=== PATIENT | female | born 1985 | race Two or more races ===

== ENCOUNTER 2023-02-25 11:48 | Outpatient (REF) | payer OTHER, SELFPAY ==
[2023-02-25 14:00] LABS: MANUAL DIFF FLAG NO
[2023-02-25 14:08] LABS: Basophils Percent Auto 0.4 % (0-2); Eosinophils Absolute Auto 0.1 X10*3/uL (0.0-0.4); Eosinophils Percent Auto 1.2 % (0-4); Hematocrit 40.5 % (37.0-47.0); Hemoglobin 13.3 g/dl (12.0-16.0); Imm Gran Abs Auto 0.02 X10*3/uL (0.00-0.03); Imm Gran Pct Auto 0.3 % (0.0-0.4); Lymphocytes Absolute Auto 1.6 X10*3/uL (1.2-4.9); Lymphocytes Percent Auto 23.8 % (20-40); Mean Corpuscular HGB Conc 32.8 g/dl (31.0-35.0); Mean Corpuscular Volume 88.4 fL (80.0-98.0); Mean Platelet Volume 11.6 fL (9.4-12.3); Monocytes Absolute Auto 0.4 X10*3/uL (0.1-1.2); Monocytes Percent Auto 5.5 % (2-11); Neutrophils Absolute Auto 4.6 x10*3/uL (2.0-8.3); Neutrophils Percent Auto 68.8 % (45-73); Platelet Count 272 X10*3/uL (160-400); Red Blood Count 4.58 X10*6/uL (4.20-5.50); Red Cell Distribution Width 13.3 % (11.0-16.0); White Blood Count 6.7 X10*3/uL (4.8-10.8)
[2023-02-25 15:02] LABS: Alanine Aminotransferase 18 U/L (0-31); Albumin Level 4.4 g/dL (3.5-5.0); Alkaline Phosphatase 53 U/L (39-117); Anion Gap 12 (12-20); Aspartate Amino Transferase 15 U/L (5-31); Bilirubin Total 0.6 mg/dL (0.0-1.0); Blood Urea Nitrogen 12 mg/dL (9-16); Calcium 9.2 mg/dL (8.4-10.2); Carbon Dioxide 26 mmol/L (22-29); Chloride 106 mmol/L (96-108); Cholesterol 176 mg/dL (<200); Estimated Glomerular Filt Rate > 60; Glucose Fasting 74 mg/dL (60-99); HDL Cholesterol 53 mg/dL (>40); LDL Cholesterol Calculated 111 mg/dL (<100); Potassium 3.9 mmol/L (3.3-5.1); Sodium 140 mmol/L (135-145); Total Protein 7.6 g/dL (6.5-8.0); Triglycerides 61 mg/dL (<150)
[2023-02-25 15:11] LABS: TSH reflex Free T4 0.81 uIU/mL (0.32-4.0)
== END 2023-02-25 11:49 | disposition home or self-care (01) ==
LOC: HO.CHCLDS 11:48
PROVIDERS: Visit Provider Internal Medicine
DX: E78.00 Pure hypercholesterolemia, unspecified (principal)
CPT/HCPCS: 36415; 80053; 80061; 84443; 85025

== ENCOUNTER 2023-03-29 08:54 | Outpatient (REF) | payer OTHER, SELFPAY ==
--- NOTE | ~2023-03-29 | MM_ITS ---
EXAMINATION: MM SCREENING DIGITAL BREAST TOMOSYNTHESIS, BILATERAL CLINICAL INFORMATION: Screening. Asymptomatic. COMPARISON: Mammography: This is a baseline mammogram TECHNIQUE: Digital breast tomosynthesis is performed in both the craniocaudal and mediolateral oblique views along with computer-aided detection (CAD). Synthesized 2D images are generated from the tomosynthesis. FINDINGS: The breasts are heterogeneously dense, which may obscure small masses (ACR BI-RADS breast composition Category c). There are no significant masses, abnormal calcifications, or other abnormalities. MM/MM tomosynthesis screening BI IMPRESSION: No mammographic evidence of malignancy. ASSESSMENT: BI-RADS BI-RADS 1 - Negative RECOMMENDATION: Routine annual mammography screening. 1 year F/U This examination should not preclude the clinical evaluation of a suspicious palpable abnormality. This patient's information was entered into a reminder system with a target due date for their next mammogram.
== END 2023-03-29 08:55 | disposition home or self-care (01) ==
LOC: HO.MAMMO 08:54
PROVIDERS: PCP Internal Medicine; Visit Provider Internal Medicine
DX: Z12.31 Encounter for screening mammogram for malignant neoplasm of breast (principal)
CPT/HCPCS: 77063; 77067

== ENCOUNTER → 2023-03-29 09:00 | Outpatient (BNV) | payer SELFPAY | PROVIDERS: PCP Internal Medicine; Visit Provider Radiology Diagnostic Radiology | DX: Z12.31 Encounter for screening mammogram for malignant neoplasm of breast (principal) | CPT/HCPCS: 77063; 77067 ==

== ENCOUNTER 2024-04-26 10:36 | Outpatient (REF) | payer OTHER, SELFPAY ==
--- OUTSIDE RECORDS SUMMARY | 2024-04-26 11:58 | XMS_ITS | Clinical Summary ---
Author Organization [employer] Address [address] [facility] 7[address] [place] [address] Care Team Providers Care Solution Architect Name Role Phone Shiv Hirsch MD Primary Care Prov ider Allergies No known active allergies Medications No known medications Active Problems Problem Noted Date Diagnosed Date Physical exam 02/25/2023 Assessment & Plan (02/25/2023 1:13 PM EST): Unremarkable, no thyroid nodules, heart rate/rhythm, no murmurs, was clear to auscultation, will order routine blood work for further evaluation Encounter for screening mamm ogram for malignant neoplasm of breast 02/25/2023 Assessment & Plan (02/25/2023 1:13 PM EST): Will order a mammogram Screening for cervical cancer 02/25/2023 Assessment & Plan (02/25/2023 1:14 PM EST): Due for a pap smear, will pace referal Elevated cholesterol 05/28/2022 Assessment & Plan (02/25/2023 1:10 PM EST): Will place lab order for guidance, she has been following diet reccomendations Assessment & Plan (05/28/2022 9:55 AM EDT): Discussed blood work results, encouraged to exercise, decrease fried/fast food, decrease red meats, increase vegetable/fruits and fish. Will follow in 6 months Protuberant abdomen 02/20/2022 Assessment & Plan (02/20/2022 9:15 AM EST): Patient refer that when she does the movement to sit or get up, she feel a abdominal bulging, she had MRI/Ct scan done in 2020, did not showed evidence of hernia, will schedule a office visit, ddx diastasis/hernia Immunizations Name Administration Dates Next Due Tdap 03/04/2019 Family History Medical History Relation Name Comments Hypertension Father Lung cancer Maternal Grandmother Asthma Mother Peripheral vascular disease Mother Diabetes Paternal Grandmother Relation Name Status Comments Father Maternal Grandmother Mother Paternal Grandmother Social History Tobacco Use Types Packs/Day Years Used Date Smoking Tobacco: Never Smokeless Tobacco: Never Tobacco Cessation:Counseling Given: Not Answered Alcohol Use Standard Drinks/Week Comments Never 0 (1 standard drink = 0.6 oz pur e alcohol) Housing Stability Answer Date Recorded What is your housing situation today? I have tomás willis 02/18/[address] you li ve. Do you have problems with any of the following? None of the above 02/18/2023 Food Insecurity Answer Date Recorded Within the past 12 months, y ou worried that your food would run out before you got money to buy more: Never True 02/18/2023 Within the past 12 months,th e food you bought just didn't last and you didn't have enough money to get more: Never True 03/2023 Transportation Answer Date Recorded In the past 12 months, has l ack of transportation kept you from medical appts, meetings, work or from getting things needed for daily living? No 02/18/2023 Utilities Answer Date Recorded In the past 12 months, has t he [employer], gas, oil or water [employer] threatened to shut off services in your home? No 02/18/2023 Depression Answer Date Recorded Patient Health Questionnaire-2 Score 0 02/25/2023 Comments Unknown Sex and Gender Information Value Date Recorded Sex Assigned at Female 12/17/2021 10:18 AM EDT Legal Sex Female 10:18 AM EDT Gender Identity Female 12/17/2021 10:18 AM EDT Sexual Orientation Straight 12/17/2021 10 :18 AM EDT Last Filed Vital Signs Vital Sign Reading Time Taken Comments Blood Pressure 134/85 02/25/2023 11:05 AM EST Pulse 77 02/25/2023 11:05 AM EST Temperature 37.1 ??C (98.7 ??F) 02/25/2023 11:[address] Respiratory Rate 20 02/25/2023 11:05 AM EST Oxygen Saturation - - Inhaled Oxygen Concentration - - Weight 66.2 kg (146 lb) 02/25/2023 11:05 AM EST Height 165.1 cm (5' 5 ) 02/25/2023 11:05 AM EST Body Mass Index 24.3 02/25/2023 11:05 AM EST Plan of Treatment Upcoming Encounters Date Type Department Care Team (Late st Contact Info) Description 07/08/2024 9:00 AM EDT Office Visit [facility] [address], [place] [phone] Shiv Hirsch MD [address], [place] [phone] Health Maintenance Due Date Last Done Comments Alcohol/Substance Use Screening 1996 Family Planning (PISQ) 01/18/1999 Hepatitis B Vaccines (1 of 3 - 19+ 3-dose series) 01/18/2003 Pap Smear 01/18/2005 Tobacco Screening 02/20/2023 02/20/2022 COVID-19 Vaccine ( - 2023-2 5 season) 2023 Influenza Vaccine (#1) 2023 Cervical Cancer Screening 11/11/2023 HPV/Cotest 11/11/2023 11/10/2018 SDOH Screening 02/19/2024 02/18/2023 Depression Screening 02/26/2024 02/25/2023, 02/25/2023 Mammogram 03/29/2025 03/29/2023 DTaP/Tdap/Td Vaccines (2 - T d or Tdap) 03/04/2029 03/04/2019 Zoster Vaccines (1 of 2) 01/18/2034 RSV Patients and Patients Aged 60 years or older (1 - 1-dose 75+ series) 01/18/2059 HIV Screening Completed 03/04/2019 Hepatitis C Screening Completed 03/04/2019 HIB Vaccines Aged Out No longer eligi ble based on patient's age to complete this topic HPV Vaccines Aged Out No longer eligi ble based on patient's age to complete this topic Hepatitis A Vaccines Aged Out No long er eligible based on patient's age to complete this topic IPV Vaccines Aged Out No longer eligi ble based on patient's age to complete this topic Meningococcal Vaccine Aged Out No thao orly eligible based on patient's age to complete this topic Pneumococcal Vaccine: Pediatrics (0 to 5 Years) and At-Risk Patients (6 to 49) Years) Aged Out No longer eligible b ased on patient's age to complete this topic RSV under 20 months Aged Out No longe r eligible based on patient's age to complete this topic Rotavirus Vaccines Aged Out No longer eligible based on patient's age to complete this topic Procedures Procedure Name Priority Date/Time Associated Diagnosis Comments BI MAMMOGRAM SCREENING TOMOSYNTHESIS BILATERAL Routine 03/29/2023 9:12 AM EST LINDA HISTORICAL HEPATITIS C ANTIBODY RFLX Routine 03/04/2019 10:45 AM EST LINDA HISTORICAL HIV AB/AG Routine 03/04/2019 10:45 AM EST LINDA HISTORICAL HPV MRNA E6/E7 Routine 11/10/2018 11:09 AM EDT from Last 3 Months or Most Recently Relevant to Health Maintenance Results * BI Mammogram Screening Tomosynthesis Bilateral (03/29/2023 9:12 AM EST) Anatomical Region Laterality Modality Breast Bilateral Mammography 03/29/2023 9:12 AM EST Narrative 04/12/2023 1:24 PM EST ? [facility] ? [address] ?[place] [address] ? Mammography Report ? Signed ? Patient: Joe Maciel,Vandana ?MR#: [id number] ?? [id number] ? : 1985 ?Acct:[id number] ? Age/Sex: 38 / F ?ADM Date: 02/10/24 ? Loc: HO.MAMMO ? Attending Dr: Shiv May MD ? Ordering Physician: Shiv Hirsch MD ?Res ?? ults: 1Negative ? Date of Service: 03/29/23 ?Follow Up: 1 Year From Orig ?? inal Mammogram ? Procedure(s): MM tomosynthesis screening BI ?? Accession Number(s): [id number] ? cc: Shiv Hirsch MD ? EXAMINATION: ?? MM SCREENING DIGITAL BREAST TOMOSYNTHESIS, BILATERAL ? CLINICAL INFORMATION: ? Screening. Asymptomatic. ? COMPARISON: ?? Mammography: This is a baseline mammogram ? TECHNIQUE: ?? Digital breast tomosynthesis is performed in both the craniocaudal and ?? mediolateral oblique views along with computer-aided detection (CAD). ?? Synthesized 2D images are generated from the tomosynthesis. ? FINDINGS: ?? The breasts are heterogeneously dense, which may obscure small masses ?? (ACR BI-RADS breast composition Category c). ? There are no significant masses, abnormal calcifications, or other ?? abnormalities. ? MM/MM tomosynthesis screening BI ?? IMPRESSION: ?? No mammographic evidence of malignancy. ? ASSESSMENT: ? BI-RADS BI-RADS 1 - Negative ? RECOMMENDATION: ?? Routine annual mammography screening. ? 1 year F/U ? This examination should not preclude the clinical evaluation of a ?? suspicious palpable abnormality. ? This patient's information was entered into a reminder system with a ?? target due date for their next mammogram. ? Dictated By: ?Delaney Alba MD ? Signed By: ?<Electronically signed by Delaney Alba MD in OV> ? 04/12/23 1320 ? DD/ 0912 ? TD/TT: ? Bag Worker: ? Procedure Note Elyssa, Image - [facility]/12/[facility] [address] [place] [address] Mammography Report Signed Patient: Vandana McfaddenMR#: M [id number] : 1985Acct:[id number] Age/Sex: 38 / FADM Date: 03/29/23 Loc: HO.MAMMO Attending Dr: Shiv May MD Ordering Physician: Shiv Hirsch ults: 1Negative Date of Service: 03/29/23Follow Up: 1 Year From Orig inal Mammogram Procedure(s): MM tomosynthesis screening BI Accession Number(s): [id number] cc: Shiv Hirsch MD EXAMINATION: MM SCREENING DIGITAL BREAST TOMOSYNTHESIS, BILATERAL CLINICAL INFORMATION: Screening. Asymptomatic. COMPARISON: Mammography: This is a baseline mammogram TECHNIQUE: Digital breast tomosynthesis is performed in both the craniocaudal and mediolateral oblique views along with computer-aided detection (CAD). Synthesized 2D images are generated from the tomosynthesis. FINDINGS: The breasts are heterogeneously dense, which may obscure small masses (ACR BI-RADS breast composition Category c). There are no significant masses, abnormal calcifications, or other abnormalities. MM/MM tomosynthesis screening BI IMPRESSION: No mammographic evidence of malignancy. ASSESSMENT: BI-RADS BI-RADS 1 - Negative RECOMMENDATION: Routine annual mammography screening. 1 year F/U This examination should not preclude the clinical evaluation of a suspicious palpable abnormality. This patient's information was entered into a reminder system with a target due date for their next mammogram. Dictated By: Delaney Alba MD Signed By: <Electronically signed by Delaney Alba MD in OV> 04/12/23 1320 DD/ 0912 TD/TT: Bag Worker: Shiv May MD IMG BI PROCEDURES Edited Result - Final * HEPATITIS C ANTIBODY RFLX (03/04/2019 10:45 AM EST) [facility] HEPATITIS C ANTIBODY NONREACTIVE NONREACTIVE [facility] Comment: Antibodies to HCV not detected; does not exclude early acute HCV infection. 03/04/2019 10:4 5 AM EST Historical Provider HISTORICAL/NON ORDERABLE LABS Final Result Performing Organization Address [facility] Co de Phone Number [facility] [address] * HIV AB/AG (03/04/2019 10:45 AM EST) [facility] HIV AG/AB NONREACTIVE [facility] Comment: HIV-1 p24 Ag and/or HIV-1/HIV-2 Ab not detected. ?? A test result that is nonreactive does not exclude the possibility of exposure to or infection with HIV-1 and/or HIV-2. Nonreactive results in this assay for individuals with prior exposure to HIV-1 and/or HIV-2 may be due to antigen and antibody levels that are below the limit of detection of this assay. ?? The [employer] Tacking Stitch Remover HIV Ag/Ab Combo assay result and supplemental assay results should be interpreted in conjunction with the patient's clinical presentation, history and other laboratory results. ??If the results are inconsistent with clinical evidence, additional testing is suggested to confirm the result. 03/04/2019 10:4 5 AM EST Historical Provider HISTORICAL/NON ORDERABLE LABS Final Result Performing Organization Address [facility] Co de Phone Number [facility] [address] * HPV mRNA E6/E7 (11/10/2018 11:09 AM EDT) [facility] HPV mRNA E6/E7 Not Detected NOT DETECTED [facility] Comment: This test was performed using the APTIMA(R) HPV Assay ([employer] This assay detects E6/E7 viral messenger RNA (mRNA) from 14 high-risk HPV types (16,18,31,33,35,39,45,51, 52,56,58,59,66,68). For additional information please refer to: http://education.Airbnb/faq/HLM106y3 (This link is being provided for informational/ educational purposes only.) The analytical performance characteristics of this assay have been determined by [employer] [place], [place]. The modifications have not been cleared or approved by the FDA. This assay has been validated pursuant to the CLIA regulations and is used for clinical purposes. Test Performed by [facility], [employer], [address] [place] [address] Benson Choe M.D., Ph.D., Director of Laboratories , CLIA [id number] Please note: ??Effective 10/30/2015, HPV testing will be performed using [employer] [place]'s APTIMA test which targets mRNA. Detecting mRNA instead of DNA, as in older methods, offers significant improvements in specificity. 11/10/2018 11:0 9 AM EDT Ariana Junior CNM HISTORICAL/NON ORDERABLE LABS Final Result [facility] Formerly [facility] [address] from Last 3 Months or Most Recently Relevant to Health Maintenance Insurance [facility] Care Teams Solution Architect Relationship Specialty Start Date End Date Shiv Hirsch MD [address] [place] [address] LORRIE Dave13 PCP - General Internal Medicine 07/18/19
== END 2024-04-26 10:37 | disposition home or self-care (01) ==
LOC: HO.MAMMO 10:36
PROVIDERS: PCP Internal Medicine; Visit Provider Internal Medicine
DX: Z12.31 Encounter for screening mammogram for malignant neoplasm of breast (principal)
CPT/HCPCS: 77063; 77067

== ENCOUNTER → 2024-04-26 10:45 | Outpatient (BNV) | payer OTHER, SELFPAY | PROVIDERS: PCP Internal Medicine; Visit Provider Internal Medicine | DX: Z12.31 Encounter for screening mammogram for malignant neoplasm of breast (principal) | CPT/HCPCS: 77063; 77067 ==

== ENCOUNTER 2024-09-28 11:56 | Outpatient (REF) | payer OTHER, SELFPAY | END 2024-09-28 11:57 | disposition home or self-care (01) | LOC: HO.HHCLNP 11:56 | PROVIDERS: Visit Provider Internal Medicine | DX: R39.9 Unspecified symptoms and signs involving the genitourinary system (principal) | CPT/HCPCS: 87086 ==

== ENCOUNTER 2024-09-29 12:12 | Outpatient (REF) | payer OTHER, SELFPAY ==
--- NOTE | ~2024-09-29 | XR_ITS ---
EXAMINATION: XR ABDOMEN 2 VIEWS SUPINE ERECT HISTORY: kub and upright, right flank pain COMPARISON: There are no prior studies available for comparison. FINDINGS: Supine and upright views of the abdomen are submitted. The bowel gas pattern is unremarkable, without evidence of mechanical obstruction. There is no free intraperitoneal gas. There is a large amount of stool throughout the colon.. Tiny calcification in the right midabdomen appears to be related to bowel. There are no abnormal soft tissue masses. The bones are intact. XR/XR abdomen min 2V IMPRESSION: Large amount of stool throughout the colon. No suspicious calcifications are identified. Electronically signed by: Gustavo Serna MD 09/29/2024 12:39 PM EDT
== END 2024-09-29 12:13 | disposition home or self-care (01) ==
LOC: HO.XRAY 12:12
PROVIDERS: PCP Internal Medicine; Visit Provider Internal Medicine
DX: R10.9 Unspecified abdominal pain (principal)
CPT/HCPCS: 74019

== ENCOUNTER → 2024-09-29 12:17 | Outpatient (BNV) | payer OTHER, SELFPAY | PROVIDERS: PCP Internal Medicine; Visit Provider Radiology Diagnostic Radiology | DX: R10.9 Unspecified abdominal pain (principal) | CPT/HCPCS: 74019 ==

== ENCOUNTER 2024-11-16 18:29 | Outpatient (REF) | payer OTHER, SELFPAY ==
--- OUTSIDE RECORDS SUMMARY | 2024-11-16 14:00 | XMS_ITS | Encounter Summary ---
Author Organization [employer] Address [address] [facility] [address] [place] [address] Care Team Providers Care Computer Artist Name Role Phone Shiv Hirsch MD Primary Care Prov ider Reason for Referral * Imaging (Routine) - Pending Review Specialty Diagnoses / Procedures Referred By Contac t Referred To Contact Radiology Diagnoses Acute cystitis with hematuria History of kidney stones Procedures CT Abdomen Pelvis w/o Contrast Lupillo Macias MD [address] [place] [address] Phone: tel: fax: Referral ID Status Reason Start Date Expiration Date V isits Requested Visits Authorized [id number] Pending Review 11/16/2024 11/16/2025 1 1 Reason for Visit * Reason Comments UTI Encounter Details Date Type Department Care Team (Late st Contact Info) Description 11/16/2024 2:00 PM EDT Office Visit [facility] [address] [place] [phone] Lupillo Macias MD [address], [place] [phone] Acute cystitis with hematuria (Primary Dx); Urinary tract infection with hematuria, site unspecified; History of kidney stones Social History Tobacco Use Types Packs/Day Years Used Date Smoking Tobacco: Never Smokeless Tobacco: Never Alcohol Use Standard Drinks/Week Comments Never 0 (1 standard drink = 0.6 oz pur e alcohol) Housing Stability Answer Date Recorded What is your housing situation today? I have tomás willis 06/29/[address] you li ve. Do you have problems with any of the following? None of the above 06/29/2024 Food Insecurity Answer Date Recorded Within the past 12 months, y ou worried that your food would run out before you got money to buy more: Never True 06/29/2024 Within the past 12 months,th e food you bought just didn't last and you didn't have enough money to get more: Never True Transportation Answer Date Recorded In the past 12 months, has l ack of transportation kept you from medical appts, meetings, work or from getting things needed for daily living? No 06/29/2024 Utilities Answer Date Recorded In the past 12 months, has t he electric, gas, oil or water company threatened to shut off services in your home? No 06/29/2024 Depression Answer Date Recorded Patient Health Questionnaire-2 Score 0 02/25/2023 Internet Access Answer Date Recorded Internet Access Q1 Yes 06/29/2024 Internet Access Q2 Not on file 06/29/2024 Comments Unknown Sex and Gender Information Value Date Recorded Sex Assigned at Female 12/17/2021 10:18 AM EDT Legal Sex Female 10:18 AM EDT Gender Identity Female 12/17/2021 10:18 AM EDT Sexual Orientation Straight 12/17/2021 10 :18 AM EDT documented as of this encounter Last Filed Vital Signs Vital Sign Reading Time Taken Comments Blood Pressure 128/71 11/16/2024 1:52 PM EDT Pulse 76 11/16/2024 1:52 PM EDT Temperature 36.9 C (98.4 F) 11/16/2024 1:52 PM EDT Respiratory Rate 19 11/16/2024 1:52 PM EDT Oxygen Saturation 99% 11/16/2024 1:52 PM EDT Inhaled Oxygen Concentration - - Weight 68.8 kg (151 lb 9.6 oz) 11/16/2024 1:52 P M EDT Height 165.1 cm (5' 5 ) 11/16/2024 1:52 PM EDT Body Mass Index 25.23 11/16/2024 1:52 PM EDT documented in this encounter Progress Notes * Lupillo Mills Edmund, MD - 11/16/2024 2:00 PM EDT SUBJECTIVE Vandana Joe is a 39 y.o. female who presents for UTI. 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 HENT: Negative for sore throat. Respiratory: Negative for cough and shortness of breath. Cardiovascular: Negative for chest pain. Gastrointestinal: Negative for abdominal pain. Neurological: Negative for headaches. Allergies[1] OBJECTIVE Vitals: 11/16/24 1352 BP: 128/71 BP Location: Left arm Patient Position: Sitting BP Cuff Size: Adult Pulse: 76 Resp: 19 Temp: 98.4 ??F (36.9 ??C) TempSrc: Oral SpO2: 99% Weight: 151 lb 9.6 oz (68.8 kg) Height: 5' 5 (1.651 m) Physical Exam Vitals reviewed. Constitutional: Appearance: Normal appearance. HENT: Head: Normocephalic and atraumatic. Right Ear: External ear normal. Left Ear: External ear normal. Nose: Nose normal. Mouth/Throat: Mouth: Mucous membranes are moist. Eyes: Conjunctiva/sclera: Conjunctivae normal. Cardiovascular: Rate and Rhythm: Normal rate and regular rhythm. Pulmonary: Effort: Pulmonary effort is normal. Breath sounds: Normal breath sounds. Skin: General: Skin is warm. Neurological: Mental Status: She is alert. Mental status is at baseline. Assessment/Plan Problem List Items Addressed This Visit Acute cystitis with hematuria - Primary Pt with new onset of dysuria and hematuria Suggestive of early UTI, although given the hematuria Kidney stone needs to be ruled out Plan: Send Urine for Cx Bactrim DS BID x 3 days Increase fluid intake, cranberry juice Will saend for a CT abdominal/pelvis given her history of nephrolithiasis Relevant Medications sulfamethoxazole-trimethoprim (Bactrim DS) 800-160 MG tablet Other Relevant Orders CT Abdomen Pelvis w/o Contrast Other Visit Diagnoses Urinary tract infection with hematuria, site unspecified Relevant Orders POCT Urinalysis (Completed) Culture, Urine, Routine History of kidney stones Relevant Medications sulfamethoxazole-trimethoprim (Bactrim DS) 800-160 MG tablet Other Relevant Orders CT Abdomen Pelvis w/o Contrast This note was drafted using Ambient (AI) technology. The patient/patient's guardian has been informed and has consented to the use of this technology: Yes No future appointments. [1] No Known Allergies documented in this encounter Miscellaneous Notes * Assessment & Plan Note - Lupillo Shaffer MD - 11/16/2024 2:14 PM EDT Associated Problem(s): Acute cystitis with hematuria Pt with new onset of dysuria and hematuria Suggestive of early UTI, although given the hematuria Kidney stone needs to be ruled out Plan: Send Urine for Cx Bactrim DS BID x 3 days Increase fluid intake, cranberry juice Will saend for a CT abdominal/pelvis given her history of nephrolithiasis documented in this encounter Plan of Treatment Scheduled Orders Name Type Priority Associated Diagnoses Orde r Schedule Culture, Urine, Routine Microbiology Routine Urinary tract infection with hematuria, site unspecified Expected: 11/16/2024 (Approximate), Expires: 11/16/2025 CT Abdomen Pelvis w/o Contrast Imaging Routine Acute cystitis with hematuria History of kidney stones Ordered: 11/16/2024 documented as of this encounter Procedures Procedure Name Priority Date/Time Associated Diagnosis Comments POCT URINALYSIS DIPSTICK Routine 11/16/2024 2:00 PM EDT Urinary tract infection with hematuria, site unspecified documented in this encounter Results * (ABNORMAL) POCT Urinalysis (11/16/2024 2:00 PM EDT) Color, UA Yellow Clarity, UA Cloudy Glucose, UA Negative Bilirubin, UA Negative Ketones, UA Negative Spec Grav, UA 1.020 Blood, UA Positive(A) Negative, None Detected Comment:moderate pH, UA 7.0 Protein, UA Trace Comment:30 mg/dL Urobilinogen, UA 0.2 Leukocytes, UA Many(A) Negative, Rare, Trace Comment:small Nitrite, UA Negative Negative, None Detected Appearance, UA slightly cloudy QC Media Lot # [id number] Lot# Expiration Date [id number] Urine 11/16/2024 2:00 PM EDT Lupillo Shaffer MD POINT OF CARE TEST EN TER/EDIT ORDERABLES Final Result documented in this encounter Visit Diagnoses Diagnosis Acute cystitis with hematuria- Primary Urinary tract infection with hematuria, site unspecified History of kidney stones documented in this encounter Care Teams Computer Artist Relationship Specialty Start Date End Date Shiv Hirsch MD [address] [place] [id number] PCP - General Internal Medicine 07/18/19 documented as of this encounter
--- OUTSIDE RECORDS SUMMARY | 2024-11-16 18:32 | XMS_ITS | Encounter Summary ---
Author Organization [employer] Address [address] [facility] [address] [place] [address] Care Team Providers Care Airport Sales Agent Name Role Phone Shiv Hirsch MD Primary Care Prov ider Encounter Details Date Type Department Care Team (Late st Contact Info) Description 09/29/2024 Results Follow-Up [facility] [address] [place] [address] Jessie Crenshaw MD [address] [place] [address] XR Abdomen 2 View minimum Social History Tobacco Use Types Packs/Day Years Used Date Smoking Tobacco: Never Smokeless Tobacco: Never Alcohol Use Standard Drinks/Week Comments Never 0 (1 standard drink = 0.6 oz pur e alcohol) Housing Stability Answer Date Recorded What is your housing situation today? I have tomásany willis 06/29/[address] you [...] AM EDT documented as of this encounter Plan of Treatment Not on file documented as of this encounter Visit Diagnoses Not on filedocumented in this encounter Care Teams Airport Sales Agent Relationship Specialty Start Date End Date Shiv Hirsch MD [address] [place] [address] PCP - General Internal Medicine 07/18/19 documented as of this encounter
--- OUTSIDE RECORDS SUMMARY | 2024-11-16 18:32 | XMS_ITS | Clinical Summary ---
Author Organization [employer] [facility] [employer] Address [address] [facility] [address] [place] [address] Care Team Providers Care Circuit Clerk Name Role Phone Shiv Hirsch MD Primary Care Prov ider Allergies No known active allergies Medications sulfamethoxazole -trimethoprim (Bactrim DS) 800-160 MG tabletIndication s:Acute cystitis with hematuria Take 1 tablet by mouth 2 times daily for 3 days. 6 tablet 11/16/2024 5 Active Active Problems Problem Noted Date Diagnosed Date Acute cystitis with hematuria 11/16/2024 Assessment & Plan (11/16/2024 2:14 PM EDT): Pt with new onset of dysuria and hematuria Suggestive of early UTI, although given the hematuria Kidney stone needs to be ruled out Plan: Send Urine for Cx Bactrim DS BID x 3 days Increase fluid intake, cranberry juice Will saend for a CT abdominal/pelvis given her history of nephrolithiasis Right flank pain 09/28/2024 Assessment & Plan (09/28/2024 7:46 PM EDT): Drink plenty of water I will order KUB to r/o kidney stones UTI symptoms 09/28/2024 Assessment & Plan (09/28/2024 7:47 PM EDT): Drink plenty of water, do not hold the urine I will prescribe macrobid 00mg BID for 1 week UA done culture send, she will be contacted with results Physical exam 02/25/2023 Assessment & Plan (09/22/2024 2:40 PM EDT): Unremarkable physical examination, no heart murmurs, no thyroid nodules, clear to auscultation bilaterally, will order routine blood test Mammogram done Pending pap smear Assessment & Plan (02/25/2023 1:13 PM EST): [...] referal Elevated cholesterol 05/28/2022 Assessment & Plan (09/22/2024 2:39 PM EDT): New abs will be ordered for guidance of therapy Assessment & Plan (02/25/2023 1:10 PM EST): [...] will schedule a office visit, ddx diastasis/hernia Encounters Date Type Department Care Team Description 11/16/2024 2:00 PM EDT Office Visit [facility] [address] [place] [address] Lupillo Macias MD Acute cystitis with hematuria (Primary Dx); Urinary tract infection with hematuria, site unspecified; History of kidney stones 09/29/2024 Results Follow-Up [facility] [address] [place] [id number] Jessie Crenshaw MD XR Abdomen 2 View minimum 09/28/2024 6:40 PM EDT Office Visit [facility] [address] [place] [address] Jessie Crenshaw MD Frequent urination; Right flank pain; UTI symptoms 09/28/2024 Travel 09/22/2024 2:00 PM EDT Office Visit [facility] [address] [place] [address] Shiv Hirsch MD Physical exam (Primary Dx); Elevated cholesterol; Frequent urination 09/22/2024 Travel 09/14/2024 Patient Outreach [facility] [address] [place] [id number] Shiv Hirsch MD Pre-visit Planning (SDOH screening completed on 06/29/24) from Last 3 Months Immunizations Immunization Administration Dates Next Due Tdap 03/04/2019 Family [...] your housing situation today? I have tomás lazaro 06/29/[address] you li [...] Mass Index 25.23 11/16/2024 1:52 PM EDT Plan of Treatment Health Maintenance Due Date Last Done Comments Disability Screening 1984 Alcohol/Substance Use Screening 1996 Family Planning (PISQ) 01/18/1999 HPV Vaccines (1 - 3-dose series) 01/18/1999 Hepatitis B Vaccines (1 of 3 - 19+ 3-dose series) 01/18/2003 Pap Smear 01/18/2005 Cervical Cancer Screening 11/11/2023 HPV/Cotest 11/11/2023 11/10/2018 Depression Screening 02/26/2024 02/25/2023, 02/25/2023 COVID-19 Vaccine (1 - 2023-2 5 season) 2024 Influenza Vaccine (#1) 2024 SDOH Screening 06/29/2025 06/29/2024 Tobacco Screening 09/28/2025 09/28/2024 Mammogram 04/26/2026 04/26/2024, 03/29/2023 DTaP/Tdap/Td Vaccines (2 - T d [...] patient's age to complete this topic Meningococcal B Vaccine Aged Out No l onger eligible based on patient's age to complete this topic Meningococcal Vaccine Aged Out No thao orly eligible based on patient's age to complete this topic Pneumococcal Vaccine: Pediatrics (0 to 5 Years) and At-Risk Patients (6 to 49) Years Aged Out No longer eligible b ased [...] Urinary tract infection with hematuria, site unspecified XR ABDOMEN 2V+ Routine 09/29/2024 12:23 PM EDT CULTURE, URINE, ROUTINE Routine 09/28/2024 6:38 PM EDT UTI symptoms POCT URINALYSIS DIPSTICK Routine 09/28/2024 5:34 PM EDT Frequent urination POCT URINALYSIS DIPSTICK Routine 09/22/2024 2:44 PM EDT Frequent urination BI MAMMOGRAM SCREENING TOMOSYNTHESIS BILATERAL Routine 04/26/2024 10:40 AM EDT [facility] HISTORICAL HEPATITIS C ANTIBODY RFLX Routine 03/04/2019 10:45 AM EST [facility] HISTORICAL HIV AB/AG Routine 03/04/2019 10:45 AM EST [facility] HISTORICAL HPV MRNA E6/E7 Routine 11/10/2018 11:09 AM EDT from Last 3 Months or Most Recently Relevant to Health Maintenance Results * (ABNORMAL) POCT Urinalysis (11/16/2024 2:00 PM EDT) Only the most recent of3 resultswithin the time period is included. Color, UA Yellow Clarity, UA Cloudy Glucose, [...] Date 63,026 Urine 11/16/2024 2:00 PM EDT us Lupillo Shaffer MD POINT OF CARE TEST EN TER/EDIT ORDERABLES Final Result * XR Abdomen 2 View minimum (09/29/2024 12:23 PM EDT) Anatomical Region Laterality Modality Abdomen Radiographic Henny ging 09/29/2024 12:2 3 PM EDT Narrative 09/29/2024 12:41 PM EDT [address] [address] XRay Report Signed Patient: Vandana Mcfadden MR#: [id number] : 1985 Acct:[id number] Age/Sex: 39 / F ADM Date: 09/29/24 Loc: [facility] Attending Dr: Jessie Chen MD Ordering Physician: Jessie Crenshaw MD Date of Service: 09/29/24 Procedure(s): XR abdomen min 2V Accession Number(s): [id number] cc: Jessie Crenshaw MD; Shiv Hirsch MD EXAMINATION: XR ABDOMEN 2 VIEWS SUPINE ERECT HISTORY: kub and upright, right flank pain COMPARISON: There are no prior studies available for comparison. FINDINGS: Supine and upright views of the abdomen are submitted. The bowel gas pattern is unremarkable, without evidence of mechanical obstruction. There is no free intraperitoneal gas. There is a large amount of stool throughout the colon.. Tiny calcification in the right midabdomen appears to be related to bowel. There are no abnormal soft tissue masses. The bones are intact. XR/XR abdomen min 2V IMPRESSION: Large amount of stool throughout the colon. No suspicious calcifications are identified. Electronically signed by: Gustavo Serna MD 09/29/2024 12:39 PM EDT RP Dictated By: Gustavo Serna MD Signed By: <Electronically signed by Gustavo Serna MD in OV> 09/29/24 1239 DD/ 1223 TD/TT: 09/29/24 1231 Motor And Generator Assembler: Procedure Note Donotuseinterpreter, Image - 09/29/[address] [address] XRay Report Signed Patient: Vandana McfaddenMR#: [id number] : 1985Acct:[id number] Age/Sex: 39 / FADM Date: 09/29/24 Loc: [facility] Attending Dr: Jessie Cehn MD Ordering Physician: Jessie Crenshaw MD Date of Service: 09/29/24 Procedure(s): XR abdomen min 2V Accession Number(s): [id number] cc: Jessie Crenshaw MD; Shiv Hirsch MD EXAMINATION: XR ABDOMEN 2 VIEWS SUPINE ERECT HISTORY: kub and upright, right flank pain COMPARISON: There are no prior studies available for comparison. FINDINGS: Supine and upright views of the abdomen are submitted. The bowel gas pattern is unremarkable, without evidence of mechanical obstruction. There is no free intraperitoneal gas. There is a large amount of stool throughout the colon.. Tiny calcification in the right midabdomen appears to be related to bowel. There are no abnormal soft tissue masses. The bones are intact. XR/XR abdomen min 2V IMPRESSION: Large amount of stool throughout the colon. No suspicious calcifications are identified. Electronically signed by: Gustavo Serna MD 09/29/2024 12:39 PM EDT Dictated By: Gustavo Serna MD Signed By: <Electronically signed by Gustavo Serna MD in OV> 09/29/24 1239 DD/ 1223 TD/TT: 09/29/24 1231 Motor And Generator Assembler: us Jessie Chen MD IMG XR PROCEDURES Fin al Result * Culture, Urine, Routine (09/28/2024 6:38 PM EDT) Urine Urine specimen obtained by clean catch procedure / Unknown 09/28/2024 6:38 PM EDT 09/29/2024 11:58 AM EDT Comment:[facility] - 10/01/2024 8:47 AM EDT Urine Culture Report Result Urine Culture > 100,000 cfu/ml Urine Culture Mixed bacterial wyatt characteristic of Urine Culture urogenital contamination. Specimen Source: Urine clean catch us Jessie Chen MD LAB MICROBIOLOGY - NERAL ORDERABLES Final Result [facility] [address] [place] [phone] * BI Mammogram Screening Tomosynthesis Bilateral (04/26/2024 10:40 AM EDT) Anatomical Region Laterality Modality Breast Bilateral Mammography 04/26/2024 10:4 0 AM EDT Narrative 05/03/2024 5:11 PM EDT [address] [place] [address] Mammography Report Signed Patient: Vandana Mcfadden MR#: [id number] : 1985 Acct:[id number] Age/Sex: 39 / F ADM Date: 04/26/24 Loc: HO.MAMMO Attending Dr: Shiv May MD Ordering Physician: Shiv Hirsch MD Res ults: 1Negative Date of Service: 04/26/24 Follow Up: 1 Year From Orig inal Mammogram Procedure(s): MM tomosynthesis screening BI Accession Number(s): [id number] cc: Shiv Hirsch MD EXAMINATION: MM SCREENING DIGITAL BREAST TOMOSYNTHESIS, BILATERAL CLINICAL INFORMATION: Screening. Asymptomatic. COMPARISON: Mammography: Comparison is made with available priors TECHNIQUE: Digital breast mammography with tomosynthesis is performed in both the craniocaudal and mediolateral oblique views along with computer-aided detection (CAD). FINDINGS: The breasts are heterogeneously dense, which [...] target due date for their next mammogram. Electronically signed by: Kandice Onofre DO 05/03/2024 05:08 PM EDT Dictated By: Kandice Onofre DO Signed By: <Electronically signed by Kandice Onofre DO in OV> 05/03/24 1708 DD/ 1040 TD/TT: 04/26/24 1055 Motor And Generator Assembler: Procedure Note Donotuseinterpreter, Image - 05/03/2024 [facility] [address] [place] [address] Mammography Report Signed Patient: Vandana Mcfadden#: [id number] : 1985Acct:[id number] Age/Sex: 39 / FADM Date: 04/26/24 Loc: HO.MAMMO Attending Dr: Shiv May MD Ordering Physician: Shiv Hirsch ults: 1Negative Date of Service: 04/26/24Follow Up: 1 Year From Orig inal Mammogram Procedure(s): MM tomosynthesis screening BI Accession Number(s): [id number] cc: Shiv Hirsch MD EXAMINATION: MM SCREENING DIGITAL BREAST TOMOSYNTHESIS, BILATERAL CLINICAL INFORMATION: Screening. Asymptomatic. COMPARISON: Mammography: Comparison is made with available priors TECHNIQUE: Digital breast mammography with tomosynthesis is performed in both the craniocaudal and mediolateral oblique views along with computer-aided detection (CAD). FINDINGS: The breasts are heterogeneously dense, which [...] target due date for their next mammogram. Electronically signed by: Kandice Onofre DO 05/03/2024 05:08 PM EDT Dictated By: Kandice Onofre DO Signed By: <Electronically signed by Kandice Onofre DO in OV> 05/03/24 1708 DD/ 1040 TD/TT: 04/26/24 1055 Motor And Generator Assembler: us Shiv May MD IMG BI PROCEDURES Final Result * HEPATITIS C ANTIBODY RFLX (03/04/2019 10:45 AM EST) Pathologist [facility] HEPATITIS C ANTIBODY NONREACTIVE NONREACTIVE [facility] Comment: Antibodies to HCV not detected; does not exclude early acute HCV infection. 03/04/2019 10:4 5 AM EST Historical Provider HISTORICAL/NON ORDERABLE LABS Final Result Performing Organization Address [facility] Phone Number [facility] [address] [place] [address], * HIV AB/AG (03/04/2019 10:45 AM EST) Pathologist [facility] HIV AG/AB NONREACTIVE [facility] Comment: HIV-1 p24 Ag and/or HIV-1/HIV-2 Ab not detected. A test result that is nonreactive does not exclude the possibility of exposure to or infection with HIV-1 and/or HIV-2. Nonreactive results in this assay for individuals with prior exposure to HIV-1 and/or HIV-2 may be due to antigen and antibody levels that are below the limit of detection of this assay. The [employer] Helper HIV Ag/Ab Combo assay result and supplemental assay results should be interpreted in conjunction with the patient's clinical presentation, history and other laboratory results. If the results are inconsistent with clinical evidence, additional testing is suggested to confirm the result. 03/04/2019 10:4 5 AM EST Historical Provider HISTORICAL/NON ORDERABLE LABS Final Result Performing Organization Address [facility] Phone Number [facility] [address] [place] [address], * HPV mRNA E6/E7 (11/10/2018 11:09 AM EDT) HPV mRNA E6/E7 Not Detected NOT DETECTED [facility] Comment: This test was performed using the APTIMA(R) HPV Assay ([employer] This assay detects E6/E7 viral messenger RNA (mRNA) from 14 high-risk HPV types (16,18,31,33,35,39,45,51, 52,56,58,59,66,68). For additional information please refer to: http://education.[employer]/faq/NEL128z4 (This link is being provided for informational/ educational purposes only.) The analytical performance characteristics of this assay have been determined by [employer] [place]. The modifications have not been cleared or approved by the FDA. This assay has been validated pursuant to the CLIA regulations and is used for clinical purposes. Test Performed by [facility], [employer] [place], [address] [place] [address] Benson Choe M.D., Ph.D., Director of Laboratories , CLIA [id number] Please note: Effective 10/30/2015, HPV testing will be performed using [employer]'s APTIMA test which targets mRNA. Detecting mRNA instead of DNA, as in older methods, offers significant improvements in specificity. 11/10/2018 11:0 9 AM EDT us Ariana Junior CNM HISTORICAL/NON ORDERABLE LABS Final Result [facility] [address] from Last 3 Months or Most Recently Relevant to Health Maintenance Insurance [facility] Care Teams Circuit Clerk Relationship Specialty Start Date End Date KerrShiv Ascencio MD [address] [place] [address] LORRIE Chao [phone] PCP - General Internal Medicine 07/18/19
== END 2024-11-16 18:30 | disposition home or self-care (01) ==
LOC: HO.HHCLNP 18:29
PROVIDERS: Visit Provider Internal Medicine
DX: Z01.84 Encounter for antibody response examination (principal); N39.0 Urinary tract infection, site not specified; R31.9 Hematuria, unspecified
CPT/HCPCS: 87086; 87088; 87186

== ENCOUNTER 2024-12-23 18:05 | Emergency (ER) | payer OTHER, SELFPAY ==
[2024-12-23 18:13] VITALS: BP 137/93; PULSE 85; RESP 18; TEMP 36.6; O2SAT 95; BMI 25.1
--- NOTE | 2024-12-23 18:14 | ED_ITS ---
HPI - General Adult General Chief complaint: Urogenital-Female Stated complaint: pain and blood during urination Time Seen by Provider: 12/23/24 22:14 History of Present Illness ED Provider: Deng SNOW narrative: The patient is a 39-year-old woman who presents with 24 hours of dysuria and urgency and hematuria. She does not think she has had a fever. She has had nausea but no vomiting. She has had some mild bilateral low back pain but no unilateral flank pain. The patient says that she has had several urinary tract infections in the last few months. Her last positive urine culture at this hospital was at the end of October. She thinks she has been treated once at a different facility since then for another urinary tract infection. Related Data Previous Rx's ?Medication ?Instructions ?Recorded phenazopyridine 200 mg tablet 200 mg PO TID PRN dysuri a 6 doses 12/23/24 #6 tabs sulfamethoxazole 800 1 tab PO BID 5 days #10 tabs 12/23/24 mg-trimethoprim 160 mg tablet Allergies Allergy/AdvReac Type Severity Reaction Status Date / Time Codeine Phosphate Allergy Unknown Unknown Uncoded 12/23/24 18:15 Review of Systems 2 Review of Systems: Yes all other systems are reviewed and are negative [facility] Social History Social History (System 02/26/23 @ 14:16 by Izzy Rollins) Advance Directives: No Advance Directives Information Provided: No Do you have a plan to hurt others: No Plan Physical Exam ED Vital Signs: Vital Signs - 24 hr 12/23/24 18:13 12/23/24 23:43 Temperature 97.8 F 97.8 F Pulse Rate 85 85 Respiratory Rate 18 18 Blood Pressure 137/93 H 137/93 H Pulse Oximetry 95 95 Oxygen Delivery Method Room Air Room Air BMI result Body Mass Index 25.1 Const Other: The patient is awake and alert. She does not appear acutely ill or in distress. HENMT Other: The face is symmetrical. ?Mucous membranes moist. Eyes Other: Pupils are round equal, conjunctivae are clear, extraocular movements intact Neck Neck: Yes normal visual inspection and Yes full ROM Resp Effort & Inspection: normal respiratory effort Auscultation: clear to auscultation bilaterally Cardio Rate: regular rate Rhythm: regular rhythm Heart sounds: S1 normal heart sound present and S2 normal heart sound present GI Other: Abdomen is soft and nontender General: Yes no CVA tenderness Back/Spine/Pelvis Back: no CVA tenderness Skin Other: The skin is dry and unremarkable Neuro Other: The patient is awake and alert with a normal mental status. She has a nontoxic demeanor. Cranial nerves are grossly intact. She moves her extremities normally and appropriately. Extrem Other: There is no calf swelling or tenderness. No asymmetry. No peripheral edema. Course Course Course Narrative: Rapid medical examination performed in triage by Greta Mercedes PA-C: Patient is a 39 year old assigned female at presenting to the emergency department with painful urination. Detailed physical exam and review of systems are deferred to the substance abuse clinician. Labs ordered. Patient placed back in the waiting room pending room availability and results. Medications Administered Discontinued Medications Generic Name Dose Route Start Last Admin Trade Name Freq PRN Reason Stop Dose Admin Phenazopyridine HCl 200 mg 12/23/24 22:18 12/23/24 23:04 Phenazopyridine Hcl 200 Mg Tablet PO 12/23/24 22:19 200 mg ONCE ONE Administration Trimethoprim/Sulfamethoxazole 1 tab 12/23/24 22:18 12/23/24 23:04 Sulfamethox/Trimeth 800/160 Tablet PO 12/23/24 22:19 1 tab ONCE ONE Administration Medical Decision Making Medical Decision Making MDM Narrative: The patient is a 39-year-old female who presents with approximately 24 hours of urinary discomfort without fever. Labs and a urine test has been ordered at triage. She has a white count of 13.4 but a normal differential. She is afebrile. Clinically she does not seem to have pyelonephritis. Her urinalysis shows 3+ leukocyte esterase and positive nitrites. Her last positive urine culture at this hospital was in April. At that time she grew Staphylococcus saprophyticus. Clinically the patient looks well and I do not think she requires testing. I think she can be managed as an outpatient on oral antibiotics. She will be started on a course of sulfamethoxazole/trimethoprim. She will also be prescribed phenazopyridine. Since she seems to be concerned that she is having recurrent UTIs she should follow up with her PCP discuss this. She should return if worse. Lab Data 12/23/24 18:25 12/23/24 18:25 Labs: Lab Results 12/23/24 Range/Units 18: WBC 13.4 H (4.8-10.8) X10*3/uL RBC 4.72 (4.20-5.50) X10*6/uL Hgb 13.9 (12.0-16.0) g/dl Hct 41.5 (37.0-47.0) % MCV 87.9 (80.0-98.0) fL MCH 29.4 (27.0-33.0) pg MCHC 33.5 (31.0-35.0) g/dl RDW 12.9 (11.0-16.0) % Plt Count 257 (160-400) X10*3/uL MPV 10.4 (9.4-12.3) fL Immature Gran % (Auto) 0.2 (0.0-0.4) % Neut % (Auto) 69.1 (45-73) % Lymph % (Auto) 22.8 (20-40) % [place] % (Auto) 6.0 (2-11) % Eos % (Auto) 1.6 (0-4) % Baso % (Auto) 0.3 (0-2) % Lymph # (Auto) 3.1 (1.2-4.9) X10*3/uL [place] # (Auto) 0.8 (0.1-1.2) X10*3/uL Eos # (Auto) 0.2 (0.0-0.4) X10*3/uL Baso # (Auto) 0.0 (0.0-0.2) X10*3/uL Abs Immat Gran (auto) 0.03 (0.00-0.03) X10*3/uL Absolute Neuts (auto) 9.3 H (2.0-8.3) x10*3/uL Absolute Nucleated RBC 0.000 (0.0-0.012) X10*3/uL Nucleated RBC % (auto) 0.0 (0.0-0.2) /100WBC Sodium 138 (135-145) mmol/L Potassium 4.3 (3.3-5.1) mmol/L Chloride 105 (96-108) mmol/L Carbon Dioxide 21 L (22-29) mmol/L Anion Gap 16 (12-20) BUN 18 H (9-16) mg/dL Creatinine 0.79 (0.5-1.4) mg/dL Estim Creat Clear Calc 92.0 Estimated GFR > 60 Random Glucose 85 (60-115) mg/dL Calcium 9.3 (8.4-10.2) mg/dL Total Bilirubin 0.3 (0.0-1.0) mg/dL AST 27 (5-31) U/L ALT 21 (0-31) U/L Alkaline Phosphatase 59 (39-117) U/L Total Protein 8.3 H (6.5-8.0) g/dL Albumin 4.9 (3.5-5.0) g/dL Beta HCG, Quant < 2 mIU/mL Urine Color Dark Yellow Urine Appearance Clear Urine pH 6.5 (5.0-9.0) Ur Specific [place] <= 1.005 (1.005-1.025) Urine Protein Negative (Neg-Trace) mg/dL Urine Glucose (UA) Negative (Negative) mg/dL Urine Ketones Negative (Negative) mg/dL Urine Blood Small (1+) H (Negative) Urine Nitrite Positive H (Negative) Ur Leukocyte Esterase Large (3+) H (Negative) Urine RBC 0-2 (0-2) /HPF Urine WBC 6-10 (0-5) /HPF Ur Squamous Epith Cells 0-2 (0-2) /HPF Urine Bacteria None Seen (None Seen) Hyaline Casts 0-2 (0-2) /LPF Discharge Plan Discharge Clinical Impression: Urinary tract infection Patient Disposition: Home, Self-Care Instructions: Urinary Tract Infection in Women (DC) Additional Instructions: Your urine test today suggest that you have a urinary tract infection. Please take the sulfamethoxazole-trimethoprim (Bactrim) 2 times a day as prescribed for 5 days. You may use the phenazopyridine as needed for urinary discomfort. This will turn your urine orange. Drink lot of fluids. Please follow up soon with your regular doctor to discuss these episodes you has been having. Return to the emergency room if you feel significantly worse. Prescriptions: New sulfamethoxazole-trimethoprim 800-160 mg tablet 1 tab PO BID 5 Days Qty: 10 0RF phenazopyridine 200 mg tablet 200 mg PO TID PRN (Reason: dysuria) Qty: 6 0RF Referrals: Shiv Hirsch MD [Physician, Medical] Interventions: ED Discharge Assessment Last Done: 12/23/24 23:43 Discharge Date/Time: 12/23/24 23:10 Print Language: Wolof
[2024-12-23 18:31] LABS: MANUAL DIFF FLAG NO
[2024-12-23 18:33] LABS: Hematocrit 41.5 % (37.0-47.0); Hemoglobin 13.9 g/dl (12.0-16.0); Imm Gran Abs Auto 0.03 X10*3/uL (0.00-0.03); Imm Gran Pct Auto 0.2 % (0.0-0.4); Lymphocytes Absolute Auto 3.1 X10*3/uL (1.2-4.9); Mean Corpuscular HGB Conc 33.5 g/dl (31.0-35.0); Mean Corpuscular Hemoglobin 29.4 pg (27.0-33.0); Mean Corpuscular Volume 87.9 fL (80.0-98.0); NRBC Abs Auto 0.000 X10*3/uL (0.0-0.012); NRBC Pct Auto 0.0 /100WBC (0.0-0.2); Platelet Count 257 X10*3/uL (160-400); Red Blood Count 4.72 X10*6/uL (4.20-5.50); White Blood Count 13.4 X10*3/uL (4.8-10.8)
[2024-12-23 18:36] LABS: Appearance Urine Clear; Glucose Urine UA Negative (Negative); PH 6.5 (5.0-9.0); Specific Gravity - Urine <= 1.005 (1.005-1.025); UMIC TRIGGER UACC YES
[2024-12-23 18:51] LABS: UACC Culture Trigger YES
[2024-12-23 18:56] LABS: Alanine Aminotransferase 21 U/L (0-31); Albumin Level 4.9 g/dL (3.5-5.0); Alkaline Phosphatase 59 U/L (39-117); Anion Gap 16 (12-20); Aspartate Amino Transferase 27 U/L (5-31); Blood Urea Nitrogen 18 mg/dL (9-16); Calcium 9.3 mg/dL (8.4-10.2); Carbon Dioxide 21 mmol/L (22-29); Chloride 105 mmol/L (96-108); Creatinine Clr Calc Pharmacy 92.0; Estimated Glomerular Filt Rate > 60; Potassium 4.3 mmol/L (3.3-5.1); Sodium 138 mmol/L (135-145); Total Protein 8.3 g/dL (6.5-8.0)
--- OUTSIDE RECORDS SUMMARY | 2024-12-23 19:07 | XMS_ITS | Encounter Summary ---
Author Organization [employer] Address [address] [place] [address] Care Team Providers Care Websphere Portal Architect Name Role Phone Shiv Hirsch MD Primary Care Prov ider Reason for Visit * Reason Onset Date Comments Nurse Triage 12/23/2024 Encounter Details Date Type Department Care Team ([facility] st Contact Info) Description 12/23/[address] [facility] [address] [place] [address] Shiv Hirsch MD [address] [place], [place] [id number] Nurse Triage Social History Tobacco Use Types Packs/Day Years [...] t he electric, gas, oil or water [employer] threatened to shut off services in your [...] AM EDT documented as of this encounter Miscellaneous Notes * Telephone Encounter - Ramona Jeffery RN - 12/23/2024 3:38 PM EST TC placed to patient using BLS #ID [id number]. Patient reported pain with urination and frequency x 2 days. Patient reported she has had 2 UTI's since August. Denies any hematuria. RN advised patient to go to [facility] for further evaluation. Patient reported she will come to the Walk [facility] Center on 12/24. Patient verbalized understanding. Protocol Used: Urination Pain - Female (Adult) Protocol-Based Disposition: See in Office or Video Visit Today Video visit not offered Positive Triage Questions: * More than 2 UTIs in last year * Painful urination AND EITHER frequency or urgency * All higher-acuity triage questions were negative Care Advice Discussed: * Drink Extra Fluids * Cranberry Juice * Cranberry Juice - Extra Notes and Warnings * Reasons To Call Back - Fever or back pain occurs - You become worse * Telephone Encounter - Maren Saunders - 12/23/2024 2:16 PM EST Symptom: Urination Pain Outcome: Schedule an urgent appointment (within 1 hour) or talk to a nurse or provider soon Reason: Severe pain now The caller accepted this outcome. PRYDEINIG SPEAKER Pcp dR. Demarco documented in this encounter Plan of Treatment Not on file documented as of this encounter Visit Diagnoses Not on filedocumented in this encounter Care Teams Websphere Portal Architect Relationship Specialty Start Date End Date Shiv Hirsch MD [address] [place] [id number] PCP - General Internal Medicine 07/18/19 documented as of this encounter
--- OUTSIDE RECORDS SUMMARY | 2024-12-23 19:07 | XMS_ITS | Clinical Summary ---
Author Organization [employer] Address [address] [facility] 7t [place] [address] Care Team Providers Care Drama Critic Name Role Phone Shiv Hirsch MD Primary [...] Encounters Date Type Department Care Team Description 12/23/2024 Telephone [facility] MEDICINE [address] [place] [address] Shiv Hirsch MD Nurse Triage 11/18/2024 Results Follow-Up [facility] MEDICINE [address] [place] [address] Lupillo Macias MD POCT Urinalysis, Culture, Urine, Routine 11/16/2024 2:00 PM EDT Office Visit [facility] WALK-IN CENTER [address] [place] [address] Lupillo Macias MD Acute cystitis with hematuria (Primary Dx); Urinary tract infection with hematuria, site unspecified; History of kidney stones 09/29/2024 Results Follow-Up [facility] MEDICINE [address] [place] [phone] Jessie Crenshaw MD XR Abdomen 2 View minimum 09/28/2024 6:40 PM EDT Office Visit [facility] WALK-IN CENTER [address] [place], [place] [phone] Jessie Crenshaw MD Frequent urination; Right flank pain; UTI symptoms 09/28/2024 Travel 09/22/2024 2:00 PM EDT Office Visit [facility] CHC MED & PEDS [address] [place], [place] [phone] Shiv Hirsch MD Physical exam (Primary Dx); Elevated cholesterol; Frequent urination 09/22/2024 Travel from Last 3 Months Immunizations Immunization Administration [...] your housing situation today? I have tomás sing 06/29/[address] you li [...] Depression Screening 02/26/2024 02/25/2023, 02/25/2023 COVID-19 Vaccine ( - 2023-2 5 season) 2024 Influenza Vaccine [...] Procedure Name Priority Date/Time Associated Diagnosis Comments CULTURE, URINE, ROUTINE Routine 11/16/2024 2:05 PM EDT Urinary tract infection with hematuria, site unspecified POCT URINALYSIS DIPSTICK Routine 11/16/2024 2:00 PM EDT Urinary tract infection with hematuria, site unspecified XR ABDOMEN 2V+ Routine 09/29/2024 12:23 PM EDT CULTURE, URINE, ROUTINE Routine 09/28/2024 6:38 PM EDT UTI symptoms POCT URINALYSIS DIPSTICK Routine 09/28/2024 5:34 PM EDT Frequent urination POCT URINALYSIS DIPSTICK Routine 09/22/2024 2:44 PM EDT Frequent urination BI MAMMOGRAM SCREENING TOMOSYNTHESIS BILATERAL Routine 04/26/2024 10:40 AM EDT [facility] HISTORICAL HEPATITIS C ANTIBODY RFLX Routine 03/04/2019 10:45 AM EST Z[facility] HISTORICAL HIV AB/AG Routine 03/04/2019 10:45 AM EST ZZ HISTORICAL HPV MRNA E6/E7 Routine 11/10/2018 11:09 AM EDT from Last 3 Months or Most Recently Relevant to Health Maintenance Results * Culture, Urine, Routine (11/16/2024 2:05 PM EDT) Only the most recent of2 resultswithin the time period is included. Urine Urine specimen obtained by clean catch procedure / Unknown 11/16/2024 2:05 PM EDT 11/16/2024 6:31 PM EDT Comment:[facility] Narrative [facility] - 11/19/2024 7:38 AM EDT Staphylococcus saprophyticus Quant 50,000 to 100,000 cfu/mL Staphylococcus saprophyticus: Clindamycin <=0.25(R) Staphylococcus saprophyticus: Erythromycin >=8(R) Staphylococcus saprophyticus: Nitrofurantoin <=16(S) Staphylococcus saprophyticus: Oxacillin 1(S) Staphylococcus saprophyticus: Penicillin-G 0.25(R) Staphylococcus saprophyticus: Tetracycline <=1(S) Staphylococcus saprophyticus: Trimethoprim/Sulfamethoxazole <=10(S) Specimen Source: Urine clean catch us Lupillo Shaffer MD LAB MICROBIOLOGY - [facility] ORDERABLES Final Result [facility] [address] [place] [phone] * (ABNORMAL) POCT Urinalysis (11/16/2024 2:00 PM [...] PM EDT Narrative 09/29/2024 12:41 PM EDT [place] [address] XRay Report Signed Patient: Vandana Mcfadden MR#: [id number] : 1985 Acct:[id number] Age/Sex: 39 / F ADM Date: 09/29/24 Loc: HO.MACK Attending Dr: Jessie Chen MD Ordering Physician: Jessie Crenshaw MD Date of Service: 09/29/24 Procedure(s): XR abdomen min 2V Accession Number(s): [id number] cc: Jessie Crenshaw MD; Shiv Hirsch MD [...] Serna MD Signed By: <Electronically signed by Gusatvo Serna MD in OV> 09/29/24 1239 DD/ 1223 TD/TT: 09/29/24 1231 Business Analyst: Procedure Note Donotuseinterpreter, Image - 09/29/[address] [address] XRay Report Signed Patient: Vanadna McfaddenMR#: M [id number] : 1985Acct:[id number] Age/Sex: 39 / FADM Date: 09/29/24 Loc: HO.XRAY Attending Dr: Jessie Chen MD Ordering Physician: Jessie Crenshaw MD Date of Service: 09/29/24 Procedure(s): XR abdomen min 2V Accession Number(s): [id number] cc: Jessie Crenshaw MD; Shiv Hirsch MD [...] 09/29/24 1239 DD/ 1223 TD/TT: 09/29/24 1231 Business Analyst: AbimbolaGallito Chen MD IMG XR PROCEDURES Fin al Result * BI Mammogram Screening Tomosynthesis Bilateral (04/26/2024 10:40 AM EDT) Anatomical Region Laterality Modality Breast Bilateral Mammography 04/26/2024 10:4 0 AM EDT Narrative 05/03/2024 5:11 PM EDT [facility] [address] [place] [address] Mammography Report Signed Patient: Vandana Mcfadden MR#: [id number] : 1985 Acct:[id number] Age/Sex: 39 / F ADM Date: 04/26/24 Loc: HO.MAMMO Attending Dr: Shiv May MD Ordering Physician: Shiv Hirsch MD Res ults: 1Negative Date of Service: 04/26/24 Follow Up: 1 Year From Orig inal Mammogram Procedure(s): MM tomosynthesis screening BI Accession Number(s): [id number] cc: Shiv Hirsch MD EXAMINATION: MM SCREENING [...] Kandice Onofre DO 05/03/2024 05:08 PM EDT RP Dictated By: Kandice Onofre DO Signed By: <Electronically signed by Kandice Onofre DO in OV> 05/03/24 1708 DD/ 1040 TD/TT: 04/26/24 1055 Business Analyst: Procedure Note Donotuseinterpreter, Image - 05/03/2024 [facility] [address] [place] [address] Mammography Report Signed Patient: Vandana McfaddenMR#: M [id number] : 1985Acct:[id number] Age/Sex: 39 / FADM Date: 04/26/24 Loc: HO.MAMMO Attending Dr: Shiv May MD Ordering Physician: Shiv Hirsch ults: 1Negative Date of Service: 04/26/24Follow Up: 1 Year From Orig inal Mammogram Procedure(s): MM tomosynthesis screening BI Accession Number(s): [id number] cc: Shiv Hirsch MD EXAMINATION: MM SCREENING [...] Kandice Onofre DO 05/03/2024 05:08 PM EDT RP Dictated By: Kandice Onofre DO Signed By: <Electronically signed by Kandice Onofre DO in OV> 05/03/24 1708 DD/ 1040 TD/TT: 04/26/24 1055 Business Analyst: Shiv May MD IMG BI PROCEDURES Final Result * HEPATITIS C ANTIBODY RFLX (03/04/2019 10:45 AM EST) [facility] HEPATITIS C ANTIBODY NONREACTIVE NONREACTIVE [facility] Comment: Antibodies to HCV not detected; does not exclude early acute HCV infection. 03/04/2019 10:4 5 AM EST Historical Provider HISTORICAL/NON ORDERABLE LABS Final Result Performing Organization Address [facility] [address] * HIV AB/AG (03/04/2019 10:45 AM EST) [facility] HIV AG/AB NONREACTIVE NR [facility]OUND[facility] ON LAB [...] of detection of this assay. The [employer] Bulldozer Operator HIV Ag/Ab Combo assay result and supplemental assay results should be interpreted in conjunction with the patient's clinical presentation, history and other laboratory results. If the results are inconsistent with clinical evidence, additional testing is suggested to confirm the result. 03/04/2019 10:4 5 AM EST Historical Provider HISTORICAL/NON ORDERABLE LABS Final Result Performing Organization Address [facility] [address] * HPV mRNA E6/E7 (11/10/2018 11:09 AM EDT) HPV mRNA E6/E7 Not Detected NOT DETECTED [facility] Comment: This test was performed using the APTIMA(R) HPV Assay ([employer] This assay detects E6/E7 viral messenger RNA (mRNA) from 14 high-risk HPV types (16,18,31,33,35,39,45,51, 52,56,58,59,66,68). For additional information please refer to: http://education.Hotelscan/faq/YNR645a2 (This link is being provided for informational/ educational purposes only.) The analytical performance characteristics of this assay have been determined by [employer] [place], [place]. The modifications have not been cleared or approved by the FDA. This assay has been validated pursuant to the CLIA regulations and is used for clinical purposes. Test Performed by [facility], [facility] [place], [address] [place] [address] Benson Choe M.D., Ph.D., Director of Laboratories , CLIA [id number] Please note: Effective 10/30/2015, HPV testing will be performed using [employer]'s APTIMA test which targets mRNA. Detecting mRNA instead of DNA, as in older methods, offers significant improvements in specificity. 11/10/2018 11:0 9 AM EDT Ariana Junior CNM HISTORICAL/NON ORDERABLE LABS Final Result [facility] [address] from Last 3 Months or Most Recently Relevant to Health Maintenance Insurance [facility] Care Teams Drama Critic Relationship Specialty Start Date End Date KerrShiv Ascencio MD [address] [place] [address] [place] [phone] PCP - General Internal Medicine 07/18/19
[2024-12-23] MEDS: Sulfamethox/Trimeth 800/160 TABLET 1 TAB PO (23:04)
[2024-12-23 23:43] VITALS: BP 137/93; PULSE 85; RESP 18; TEMP 36.6; O2SAT 95
== END 2024-12-23 23:10 | disposition home or self-care (01) ==
PROVIDERS: Physician Assistant Medical; Emergency Provider Emergency Medicine; PCP Internal Medicine
DX: N39.0 Urinary tract infection, site not specified (principal); R30.0 Dysuria; R39.15 Urgency of urination; R31.9 Hematuria, unspecified; R11.0 Nausea
CPT/HCPCS: 36415; 80053; 81001; 84702; 85025; 87086; 87088; 87186; 99283

== ENCOUNTER 2025-01-17 10:15 | Outpatient (REF) | payer OTHER, SELFPAY ==
--- NOTE | ~2025-01-17 | CT_ITS ---
EXAMINATION: CT ABDOMEN AND PELVIS WITHOUT CONTRAST CLINICAL INFORMATION: dysuria, hematuria , Hx of kidney stones COMPARISON: None available. TECHNIQUE: Multidetector volumetric imaging was performed from the superior aspect of the liver through the pubic symphysis. Sagittal and coronal reformatted images were obtained on the technologist's workstation. This CT examination was performed using dose optimization techniques as appropriate, variously including the following: *Automated exposure control *Adjustment of mA and/or kV according to patient size (this includes techniques or standardized protocols for targeted exams where dose is matched to indication/reason for exam; i.e. extremities or head) *Use of iterative reconstruction technique FINDINGS: LUNG BASES: The visualized lung bases are unremarkable. LIVER, GALLBLADDER, AND BILIARY TREE: There is a lesion in the right hepatic lobe measuring 4.1 x 2.5 x 3.1 cm (AP by transverse by CC). Measured 43 Hounsfield units. The gallbladder is unremarkable with no evidence of radiopaque gallstones, gallbladder wall thickening, or obvious pericholecystic inflammatory changes. PANCREAS: Unremarkable. SPLEEN: There is calcified. Spleen is otherwise unremarkable. ADRENAL GLANDS: Unremarkable. KIDNEYS AND URETERS: There are 2 stones in right kidney and one stone in the left kidney. Large stone in the right kidney measures 2 x 3 mm. Stone in the left kidney measures 3 mm. There is no hydronephrosis and no stones in the ureters. BLADDER: Unremarkable. GASTROINTESTINAL TRACT: The small and large bowel are unremarkable. The appendix is unremarkable. ABDOMINAL WALL: There is a small fat filled umbilical hernia. LYMPH NODES: Normal. VASCULAR: Unremarkable. PELVIC VISCERA: The uterus and adnexa are unremarkable. OSSEOUS STRUCTURES: Unremarkable. CT/CT abdomen pelvis wo IV con IMPRESSION: Nephrolithiasis. No hydronephrosis or ureteral stones. 2 small stones are present in the right kidney and one small stone is present in the lower pole the left kidney. Largest stones measuring 3 mm. Indeterminate liver lesion. There is a lesion in the right hepatic lobe measuring 4.1 x 2.5 x 3.1 cm. Follow-up MRI abdomen/liver without and with IV contrast. Fleischner guidelines were followed. Electronically signed by: Sanket Granados MD 01/17/2025 11:56 AM [facility]
--- OUTSIDE RECORDS SUMMARY | 2025-01-17 12:42 | XMS_ITS | Clinical Summary ---
Author Organization [employer] Address [address] [facility] 7t [place] [address] Care Team Providers Care Ends Breakage Clerk Name Role Phone Shiv Hirsch MD [...] Type Department Care Team Description 12/23/2024 Telephone [facility] MEDICINE [address] [place] [address] Shiv Hirsch MD Nurse Triage 11/18/2024 Results Follow-Up [facility] MEDICINE [address] [place] [address] Lupillo Macias MD POCT Urinalysis, Culture, Urine, Routine 11/16/2024 2:00 PM EDT Office Visit [facility] WALK-IN [address] [address] Lupillo Macias MD Acute cystitis with hematuria (Primary Dx); Urinary tract infection with hematuria, site unspecified; History of kidney stones from Last 3 Months Immunizations Immunization Administration [...] t he electric, gas, oil or water [employer] threatened to shut off services in your [...] 02/26/2024 02/25/2023, 02/25/2023 COVID-19 Vaccine (1 - 2024-2 6 season) 2024 Influenza Vaccine (#1) 2024 SDOH [...] Procedure Name Priority Date/Time Associated Diagnosis Comments CT ABDOMEN PELVIS WO CONTRAST Routine 01/17/2025 10:20 AM EST Acute cystitis with hematuria History of kidney stones CULTURE, URINE, ROUTINE Routine 11/16/2024 2:05 PM EDT Urinary tract infection with hematuria, site unspecified POCT URINALYSIS DIPSTICK Routine 11/16/2024 2:00 PM EDT Urinary tract infection with hematuria, site unspecified BI MAMMOGRAM SCREENING TOMOSYNTHESIS BILATERAL Routine 04/26/2024 10:40 AM EDT [facility] HISTORICAL HEPATITIS C ANTIBODY RFLX Routine 03/04/2019 10:45 AM EST [facility] HISTORICAL HIV AB/AG Routine 03/04/2019 10:45 AM EST [facility] HISTORICAL HPV MRNA E6/E7 Routine 11/10/2018 11:09 AM EDT from Last 3 Months or Most Recently Relevant to Health Maintenance Results * CT Abdomen Pelvis w/o Contrast (01/17/2025 10:20 AM EST) Anatomical Region Laterality Modality Body, Pelvis, Abdomen Computed T omography 01/17/2025 10:2 0 AM EST Narrative 01/17/2025 11:59 AM EST [address] [address] [address] Scan Report Signed Patient: Vandana Mcfadden MR#: M [id number] : 1985 Acct:[id number] Age/Sex: 39 / F ADM Date: 01/17/25 Loc: HO.CT Attending Dr: Lupillo Tavarez MD Ordering Physician: Lupillo Tavarez MD Date of Service: 01/17/25 Procedure(s): CT abdomen pelvis wo IV con Accession Number(s): [id number] cc: Rommel Chavez III, MD; Lupillo Tavarez MD Report Number: [id number]: Total DLP = 461.00 mGy-cm Reason for Exam: dysuria, hematuria , Hx of kidney stones, rule out nephrolithiasis EXAMINATION: CT ABDOMEN AND PELVIS WITHOUT CONTRAST CLINICAL INFORMATION: dysuria, hematuria , Hx of kidney stones COMPARISON: None available. TECHNIQUE: Multidetector volumetric imaging was performed from the superior aspect of the liver through the pubic symphysis. Sagittal and coronal reformatted images were obtained on the technologist's workstation. This CT examination was performed using dose optimization techniques as appropriate, variously including the following: *Automated exposure control *Adjustment of mA and/or kV according to patient size (this includes techniques or standardized protocols for targeted exams where dose is matched to indication/reason for exam; i.e. extremities or head) *Use of iterative reconstruction technique FINDINGS: LUNG BASES: The visualized lung bases are unremarkable. LIVER, GALLBLADDER, AND BILIARY TREE: There is a lesion in the right hepatic lobe measuring 4.1 x 2.5 x 3.1 cm (AP by transverse by CC). Measured 43 Hounsfield units. The gallbladder is unremarkable with no evidence of radiopaque gallstones, gallbladder wall thickening, or obvious pericholecystic inflammatory changes. PANCREAS: Unremarkable. SPLEEN: There is calcified. Spleen is otherwise unremarkable. ADRENAL GLANDS: Unremarkable. KIDNEYS AND URETERS: There are 2 stones in right kidney and one stone in the left kidney. Large stone in the right kidney measures 2 x 3 mm. Stone in the left kidney measures 3 mm. There is no hydronephrosis and no stones in the ureters. BLADDER: Unremarkable. GASTROINTESTINAL TRACT: The small and large bowel are unremarkable. The appendix is unremarkable. ABDOMINAL WALL: There is a small fat filled umbilical hernia. LYMPH NODES: Normal. VASCULAR: Unremarkable. PELVIC VISCERA: The uterus and adnexa are unremarkable. OSSEOUS STRUCTURES: Unremarkable. CT/CT abdomen pelvis wo IV con IMPRESSION: Nephrolithiasis. No hydronephrosis or ureteral stones. 2 small stones are present in the right kidney and one small stone is present in the lower pole the left kidney. Largest stones measuring 3 mm. Indeterminate liver lesion. There is a lesion in the right hepatic lobe measuring 4.1 x 2.5 x 3.1 cm. Follow-up MRI abdomen/liver without and with IV contrast. Fleischner guidelines were followed. Electronically signed by: Sanket Granados MD 01/17/2025 11:56 AM EST Dictated By: Sanket Granados MD Signed By: <Electronically signed by Sanket Granados MD in OV> 01/17/25 1156 DD/ 1020 TD/TT: 01/17/25 1133 Housing Liaison: Procedure Note Donotuseinterpreter, Image - 01/17/[address] [place] [address] [address] Scan Report Signed Patient: Vandana Mcfadden#: M [id number] : 1985Acct:[id number] Age/Sex: 39 / FADM Date: 01/17/25 Loc: HO.CT Attending Dr: Lupillo Tavarez MD Ordering Physician: Lupillo Tavarez MD Date of Service: 01/17/25 Procedure(s): CT abdomen pelvis wo IV con Accession Number(s): [id number] cc: Rommel Chavez III, MD; Lupillo Tavarez MD Report Number: [id number]: Total DLP = 461.00 mGy-cm Reason for Exam: dysuria, hematuria , Hx of kidney stones, rule outnephrolithiasis EXAMINATION: CT ABDOMEN AND PELVIS WITHOUT CONTRAST CLINICAL INFORMATION: dysuria, hematuria , Hx of kidney stones COMPARISON: None available. TECHNIQUE: Multidetector volumetric imaging was performed from the superior aspect of the liver through the pubic symphysis. Sagittal and coronal reformatted images were obtained on the technologist's workstation. This CT examination was performed using dose optimization techniques as appropriate, variously including the following: *Automated exposure control *Adjustment of mA and/or kV according to patient size (this includes techniques or standardized protocols for targeted exams where dose is matched to indication/reason for exam; i.e. extremities or head) *Use of iterative reconstruction technique FINDINGS: LUNG BASES: The visualized lung bases are unremarkable. LIVER, GALLBLADDER, AND BILIARY TREE: There is a lesion in the right hepatic lobe measuring 4.1 x 2.5 x 3.1 cm (AP by transverse by CC). Measured 43 Hounsfield units. The gallbladder is unremarkable with no evidence of radiopaque gallstones, gallbladder wall thickening, or obvious pericholecystic inflammatory changes. PANCREAS: Unremarkable. SPLEEN: There is calcified. Spleen is otherwise unremarkable. ADRENAL GLANDS: Unremarkable. KIDNEYS AND URETERS: There are 2 stones in right kidney and one stone in the left kidney. Large stone in the right kidney measures 2 x 3 mm. Stone in the left kidney measures 3 mm. There is no hydronephrosis and no stones in the ureters. BLADDER: Unremarkable. GASTROINTESTINAL TRACT: The small and large bowel are unremarkable. The appendix is unremarkable. ABDOMINAL WALL: There is a small fat filled umbilical hernia. LYMPH NODES: Normal. VASCULAR: Unremarkable. PELVIC VISCERA: The uterus and adnexa are unremarkable. OSSEOUS STRUCTURES: Unremarkable. CT/CT abdomen pelvis wo IV con IMPRESSION: Nephrolithiasis. No hydronephrosis or ureteral stones. 2 small stones are present in the right kidney and one small stone is present in the lower pole the left kidney. Largest stones measuring 3 mm. Indeterminate liver lesion. There is a lesion in the right hepatic lobe measuring 4.1 x 2.5 x 3.1 cm. Follow-up MRI abdomen/liver without and with IV contrast. Fleischner guidelines were followed. Electronically signed by: Sanket Granados MD 01/17/2025 11:56 AM EST Dictated By: Sanket Granados MD Signed By: <Electronically signed by Sanket Granados MD in OV> 01/17/25 1156 DD/ 1020 TD/TT: 01/17/25 1133 Housing Liaison: Lupillo Shaffer MD IMG CT PROCEDURES Thad wai Result - Final * Culture, Urine, Routine (11/16/2024 2:05 PM EDT) Urine Urine specimen obtained by clean catch procedure / Unknown 11/16/2024 2:05 PM EDT 11/16/2024 6:31 PM EDT Comment:[facility] - 11/19/2024 7:38 AM EDT Staphylococcus saprophyticus Quant 50,000 to 100,000 cfu/mL Staphylococcus saprophyticus: Clindamycin <=0.25(R) Staphylococcus saprophyticus: Erythromycin >=8(R) Staphylococcus saprophyticus: Nitrofurantoin <=16(S) Staphylococcus saprophyticus: Oxacillin 1(S) Staphylococcus saprophyticus: Penicillin-G 0.25(R) Staphylococcus saprophyticus: Tetracycline <=1(S) Staphylococcus saprophyticus: Trimethoprim/Sulfamethoxazole <=10(S) Specimen Source: Urine clean catch Lupillo Shaffer MD LAB MICROBIOLOGY - [facility] ORDERABLES Final Result [facility] [address] [place] [phone] * (ABNORMAL) POCT Urinalysis (11/16/2024 2:00 [...] Media Lot # [id number] Lot# Expiration Date 63, Urine 11/16/2024 2:00 PM EDT Lupillo Shaffer MD POINT OF CARE TEST EN TER/EDIT ORDERABLES Final Result * BI Mammogram Screening Tomosynthesis Bilateral (04/26/2024 10:40 AM EDT) Anatomical Region Laterality Modality Breast Bilateral Mammography 04/26/2024 10:4 0 AM EDT Narrative 05/03/2024 5:11 PM EDT [facility] [address] [place], [place] [address] Mammography Report Signed Patient: Vandana Mcfadden MR#: M [id number] : 1985 Acct:[id number] Age/Sex: 39 / F ADM Date: 04/26/24 Loc: HO.MAMMO Attending Dr: Shiv May MD Ordering Physician: Shiv Hirsch MD Res ults: 1Negative Date of Service: 04/26/24 Follow Up: 1 Year From [facility] Mammogram Procedure(s): MM tomosynthesis screening BI Accession Number(s): [id number] cc: Shiv Hirsch MD EXAMINATION: MM SCREENING [...] 05/03/24 1708 DD/ 1040 TD/TT: 04/26/24 1055 Housing Liaison: Procedure Note Donotuseinterpreter, Image - 05/03/2024 [facility] [address] [place], [place] [address] Mammography Report Signed Patient: Vandana Mcfadden#: M [id number] : 1985Acct:[id number] Age/Sex: 39 / FADM Date: 04/26/24 Loc: HO.MAMMO Attending Dr: Shiv May MD Ordering Physician: Shiv Hirsch ults: 1Negative Date of Service: 04/26/24Follow Up: 1 Year From Orig ina Mammogram Procedure(s): MM tomosynthesis screening BI Accession Number(s): [id number] cc: Shiv Hirsch MD EXAMINATION: MM SCREENING [...] 05/03/24 1708 DD/ 1040 TD/TT: 04/26/24 1055 Housing Liaison: Shiv May MD IMG BI PROCEDURES Final Result * HEPATITIS C ANTIBODY RFLX (03/04/2019 10:45 AM EST) HEPATITIS C ANTIBODY NONREACTIVE NONREACTIVE [facility] Comment: Antibodies to HCV not detected; does not exclude early acute HCV infection. 03/04/2019 10:4 5 AM EST Historical Provider HISTORICAL/NON ORDERABLE LABS Final Result Performing Organization Address [facility] Co de Phone Number [facility] [address] * HIV AB/AG (03/04/2019 10:45 AM EST) Pathologist [facility] HIV AG/AB NONREACTIVE NR [facility]OUND[facility] ON LAB [...] of detection of this assay. The [employer] Tooth Cutter Pinion HIV Ag/Ab Combo assay result and supplemental assay results should be interpreted in conjunction with the patient's clinical presentation, history and other laboratory results. If the results are inconsistent with clinical evidence, additional testing is suggested to confirm the result. 03/04/2019 10:4 5 AM EST Historical Provider HISTORICAL/NON ORDERABLE LABS Final Result Performing Organization Address [facility] Co de Phone Number [facility] [address] * HPV mRNA E6/E7 (11/10/2018 11:09 AM EDT) Pathologist [facility] HPV mRNA E6/E7 Not Detected NOT DETECTED [facility] Comment: This test was performed using the APTIMA(R) HPV Assay ([employer] This assay detects E6/E7 viral messenger RNA (mRNA) from 14 high-risk HPV types (16,18,31,33,35,39,45,51, 52,56,58,59,66,68). For additional information please refer to: http://education.[employer]/faq/ORB280w6 (This link is being provided for informational/ educational purposes only.) The analytical performance characteristics of this assay have been determined by [employer] [place], [place]. The modifications have not been cleared or approved by the FDA. This assay has been validated pursuant to the CLIA regulations and is used for clinical purposes. Test Performed by [facility], [facility], [address] [place] [address] Benson Choe M.D., Ph.D., Director of Laboratories , CLIA [id number] Please note: Effective 10/30/2015, HPV testing will be performed using [employer]'s APTIMA test which targets mRNA. Detecting mRNA instead of DNA, as in older methods, offers significant improvements in specificity. 11/10/2018 11:0 9 AM EDT Ariana Junior CNM HISTORICAL/NON ORDERABLE LABS Final Result [facility] Any[address] from Last 3 Months or Most Recently Relevant to Health Maintenance Insurance [facility]LY [facility] Care Teams Ends Breakage Clerk Relationship Specialty Start Date End Date Shiv Hirsch MD [address] [place] [address] [place] [address] PCP - General Internal Medicine 07/18/19
== END 2025-01-17 10:16 | disposition home or self-care (01) ==
LOC: HO.CT 10:15
PROVIDERS: PCP Internal Medicine; Visit Provider Internal Medicine
DX: N30.01 Acute cystitis with hematuria (principal); R30.0 Dysuria; Z87.442 Personal history of urinary calculi
CPT/HCPCS: 74176

== ENCOUNTER → 2025-01-17 10:17 | Outpatient (BNV) | payer OTHER, SELFPAY | PROVIDERS: PCP Internal Medicine; Visit Provider Radiology Diagnostic Radiology | DX: N20.0 Calculus of kidney (principal) | CPT/HCPCS: 74176 ==

== ENCOUNTER 2025-02-11 14:54 | Outpatient (REF) | payer OTHER, SELFPAY ==
--- NOTE | ~2025-02-11 | MR_ITS ---
EXAMINATION: MR ABDOMEN WITHOUT THEN WITH IV CONTRAST HISTORY: liver lesion COMPARISON: Correlation is made with a CT of the abdomen without contrast dated 01/17/2025. TECHNIQUE: Axial in and out of phase T1-weighted gradient echo, axial diffusion weighted, and axial and coronal HASTE T2 with fat saturation images were obtained through the abdomen. Subsequently, fat suppressed axial and coronal T1-weighted images were obtained after the intravenous administration of 6.5 mL Gadavist. FINDINGS: Liver: There is no loss of signal intensity in the liver on opposed phase imaging to suggest steatosis. There is a 4.0 x 2.4 x 3.4 cm lobulated T2 hyperintense mass in segment VIII which demonstrates peripheral, nodular enhancement with vaginal fill-in over time, compatible with a hemangioma. There is likely an additional subcentimeter flash filling hemangioma in segment VIII at the dome. The hepatic and portal veins are patent. There is no intrahepatic biliary dilatation. Gallbladder/biliary tree: No gallstones are identified. The common bile duct is normal in caliber. No intraluminal filling defects are identified to suggest choledocholithiasis. Spleen: The spleen is unremarkable. Pancreas: The pancreas is unremarkable. There is no enhancing pancreatic mass. The pancreatic duct is normal in caliber. Adrenals: The adrenal glands are unremarkable. Kidneys: The kidneys are unremarkable. There is no hydronephrosis. Lymph nodes: There is no retroperitoneal lymphadenopathy in the upper abdomen. Fluid: There is no ascites in the upper abdomen. Visualized bowel: The visualized small and large bowel loops are unremarkable in appearance. Visualized bones: The visualized bones demonstrate normal marrow signal intensity. Additional findings: Incidental note is made of an 8 mm submucosal fibroid in the fundus of the uterus and a 2.1 cm posterior fibroid. MR/MR abdomen wo/w con IMPRESSION: 4.0 x 2.4 x 3.4 cm hepatic hemangioma corresponding to the abnormality noted on CT. An additional smaller probable flash filling hemangioma is seen at the dome of the liver. Electronically signed by: Gustavo Serna MD 02/11/2025 03:54 PM EST
== END 2025-02-11 14:55 | disposition home or self-care (01) ==
LOC: HO.MRI 14:54
PROVIDERS: PCP Internal Medicine; Visit Provider Internal Medicine
DX: K76.9 Liver disease, unspecified (principal)
CPT/HCPCS: 74183; A9585

== ENCOUNTER → 2025-02-11 14:54 | Outpatient (BNV) | payer OTHER, SELFPAY | PROVIDERS: PCP Internal Medicine; Visit Provider Radiology Diagnostic Radiology | DX: D18.03 Hemangioma of intra-abdominal structures (principal) | CPT/HCPCS: 74183 ==

== ENCOUNTER 2025-02-16 19:06 | Outpatient (REF) | payer OTHER, SELFPAY ==
--- OUTSIDE RECORDS SUMMARY | 2025-02-16 14:00 | XMS_ITS | Encounter Summary ---
Author Organization [employer] Address [address] [place] [id number] Care Team Providers Care Film Process Operator Name Role Phone Shiv Hirsch MD Primary Care Prov ider Encounter Details Date Type Department Care Team (Late st Contact Info) Description 02/16/2025 2:00 PM EST Office Visit [facility] MED[facility] [address] [place], [place] [phone] Pricila Harrington, MED SURG NURSE [address] [place], [place] [phone] Acute cystitis without hematuria (Primary Dx); Dysuria Social History Tobacco Use Types Packs/Day Years Used Date Smoking Tobacco: Never Passive Smoke Exposure: Never Smokeless Tobacco: Never Tobacco Cessation:Counseling Given: Not Answered Alcohol Use Standard Drinks/Week Comments Never 0 (1 standard drink = 0.6 oz pur e alcohol) Depression Answer Date Recorded Patient Health Questionnaire-9 Score 0 02/07/2025 Patient Health Questionnaire-9 Score 0 02/07/2025 Last PHQ-9: Questionnaire Data Not on file 1 04/10/2024 Housing Stability Answer Date Recorded What is [...] Date Recorded Patient Health Questionnaire-2 Score 0 02/07/2025 Internet Access Answer Date Recorded Internet Access [...] Sign Reading Time Taken Comments Blood Pressure 112/62 02/16/2025 1:54 PM EST Pulse 78 02/16/2025 1:54 PM EST Temperature 36.6 C (97.9 F) 02/16/2025 1:54 PM EST Respiratory Rate 12 02/16/2025 1:54 PM EST Oxygen Saturation 99% 02/16/2025 1:54 PM EST Inhaled Oxygen Concentration - - Weight 70.9 kg (156 lb 4 oz) 02/16/2025 1:54 PM EST Height 165.1 cm (5' 5 ) 02/16/2025 1:54 PM EST Body Mass Index 26 02/16/2025 1:54 PM EST documented in this encounter Progress Notes * Pricila Harrington NP - 02/16/2025 2:00 PM EST Vandana Joe is a 40 y.o. female who presents for an acute visit. HPI History of nephrolithiasis -Previous episode of kidney stones, -Referral to urology placed 11/18/24 CT of abdomen 11/16/24: There are 2 stones in right kidney and one stone in the left kidney. Large stone in the right kidney measures 2 x 3 mm. Stone in the left kidney measures 3 mm. There is no hydronephrosis and no stones in the ureters. MRI of abdomen 01/27/25: The kidneys are unremarkable. There is no hydronephrosis. Prescribed Macrobid on 09/28/24 Prescribed Bactrim on 11/16/24 Recurrent urinary symptoms - History of urinary symptoms recurring over time, with previous episodes noted in September, October, and December 2024 -Currently taking Phenazopyridine 200mg that she got from the ED in December -Onset of current pain started last night -She is not menopausal -Denies low back pain - reports urology follow-up scheduled for March 2025. Problem List[1] Allergies[2] Review of Systems Constitutional: Negative for chills, diaphoresis and fever. Gastrointestinal: Negative for abdominal pain, blood in stool, nausea and vomiting. Genitourinary: Positive for dysuria and pelvic pain. Negative for frequency, hematuria, menstrual problem and urgency. Vitals: 02/16/25 1354 BP: 112/62 BP Location: Left arm Patient Position: Sitting BP Cuff Size: Adult Pulse: 78 Resp: 12 Temp: 97.9 ??F (36.6 ??C) TempSrc: Oral SpO2: 99% Weight: 156 lb 4 oz (70.9 kg) Height: 5' 5 (1.651 m) Physical Exam Constitutional: General: She is not in acute distress. Appearance: Normal appearance. She is not ill-appearing, toxic-appearing or diaphoretic. Pulmonary: Effort: Pulmonary effort is normal. Breath sounds: Normal breath sounds. Abdominal: Tenderness: There is no right CVA tenderness or left CVA tenderness. Neurological: General: No focal deficit present. Mental Status: She is alert. Psychiatric: Mood and Affect: Mood normal. Behavior: Behavior normal. Latest Reference Range & Units 02/16/25 14:01 Color, UA Kathryn Specific [place], UA 1.020 pH, UA 5.5 Ketones, UA Negative Protein, UA Negative Nitrite, UA Negative, None Detected Positive ! RBC, UA Negative, None Detected Positive ! Clarity, UA Clear Glucose, UA Trace Leukocytes, UA Negative, Rare, Trace, 1+ (17), 2+ (35), 3+ (70), Trace (15) Trace Bilirubin UA Negative Urobilinogen, UA 1.0 Appearance, UA clear !: Data is abnormal Assessment & Plan Acute cystitis without hematuria - Recurrent dysuria with associated pain. Previous episodes treated with Macrobid and Bactrim, botheffective. Current episode started on February 15, 2025. - Prescribed Bactrim for 3 days. Will send urine for culture. Referral to urology already in place with appointment scheduled for March 2025. Orders: sulfamethoxazole-trimethoprim (Bactrim DS) 800-160 MG tablet; Take 1 tablet by mouth every 12 (twelve) hours for 3 days. Dysuria - Differential diagnosis includes possible sexually transmitted infection as a contributing factor to urinary symptoms. - Ordered self-administered swabs for gonorrhea, chlamydia, BV, yeast, and trich testing. Orders: POCT Urinalysis Culture, Urine, Routine; Future Chlamydia/N. Gonorrhoeae RNA, TMA, Vagina Bacterial Vaginosis, Yeast and Trich; Future Current Medications[3] Follow up if symptoms worsen or fail to improve. [facility] MED SURG NURSE Attestation MED SURG NURSE Resident Attestation: Patient was seen and evaluated by Pricila FERNANDO , in collaboration with Epi Adrian MD who has reviewed my assessment and plan. I, Epi Adrian MD , have reviewed the resident's note and agree with the assessment & plan of care as documented above. Visit Conducted in: [place]alan Translation by: Provided by [employer] Phone Service ID # [id number] [1] Patient Active Problem List Diagnosis Protuberant abdomen Elevated cholesterol Physical exam Encounter for screening mammogram for malignant neoplasm of breast Screening for cervical cancer Right flank pain UTI symptoms Acute cystitis with hematuria [2] No Known Allergies [3] Current Outpatient Medications: sulfamethoxazole-trimethoprim (Bactrim DS) 800-160 MG tablet, Take 1 tablet by mouth every 12 (twelve) hours for 3 days., Disp: 6 tablet, Rfl: 0 documented in this encounter Plan of Treatment Upcoming Encounters Date Type Department Care Team (Late st Contact Info) Description 06/23/2025 1:30 PM EDT Office Visit [facility] OPTOMETRY [address] [place], [place] [phone] Sheyla Yung, OD [address] [facility] [place] [address] Scheduled Orders Name Type Priority Associated Diagnoses Orde r Schedule Culture, Urine, Routine Microbiology Routine Dysuria Expected: 02/16/2025 (Approximate), Expires: 02/16/2026 Chlamydia/N. Gonorrhoeae RNA, TMA, Vagina Microbiology Routine Dysuria Ordered: 02/16/2025 Bacterial Vaginosis, Yeast and Trich Microbiology Routine Dysuria Expected: 02/16/2025 (Approximate), Expires: 02/16/2026 documented as of this encounter Procedures Procedure Name Priority Date/Time Associated Diagnosis Comments POCT URINALYSIS DIPSTICK Routine 02/16/2025 2:01 PM EST Dysuria documented in this encounter Results * (ABNORMAL) POCT Urinalysis (02/16/2025 2:01 PM EST) Color, UA Kathryn Clarity, UA Clear Glucose, UA Trace Comment:100 mg/dL Bilirubin, UA Negative Ketones, UA Negative Spec Grav, UA 1.020 Blood, UA Positive(A) Negative, None Detected Comment:moderate pH, UA 5.5 Protein, UA Negative Urobilinogen, UA 1.0 Leukocytes, UA Trace Negative, Rare, Trace, 1+ (17), 2+ (35), 3+ (70), Trace (15) Comment:few Nitrite, UA Positive(A) Negative, None Detected Appearance, UA clear QC Media Lot # [id number] Lot# Expiration Date , Urine (Urine, Random) 02/16/2025 2:01 PM EST Pricila Harrington NP POINT OF CARE TEST ENTER/EDIT O RDERABLES Final Result documented in this encounter Visit Diagnoses Diagnosis Acute cystitis without hematuria- Primary Dysuria documented in this encounter Additional Health Concerns Assessment Noted Time PHQ-9 Depression Total Score: 0 02/08/20 25 2:10 PM EST documented as of this encounter Care Teams Film Process Operator Relationship Specialty Start Date End Date Shiv Hirsch MD [address] [place] [id number] PCP - General Internal Medicine 07/18/19 documented as of this encounter
--- OUTSIDE RECORDS SUMMARY | 2025-02-16 19:10 | XMS_ITS | Encounter Summary ---
Author Organization [employer] Address [address] [facility] [address] [place] [address] Care Team Providers Care As400 Operator Name Role Phone Shiv Hirsch MD Primary Care Prov ider Encounter Details Date Type Department Care Team (Latest Contact Info) Description 02/16/2025 Travel Social History Tobacco Use Types Packs/Day Years Used Date Smoking Tobacco: Never Passive Smoke Exposure: Never Smokeless Tobacco: Never Alcohol Use Standard [...] as of this encounter Plan of Treatment Upcoming Encounters Date Type Department Care Team (Late st Contact Info) Description 06/23/2025 1:30 PM EDT Office Visit [facility] OPTOMETRY [address] [place] [address] Dilshad, Sheyla, OD [address] [place] [address] documented as of this encounter Visit Diagnoses Not on filedocumented in this encounter Additional Health Concerns Assessment Noted Time PHQ-9 Depression Total Score: 0 02/08/20 25 2:10 PM EST documented as of this encounter Care Teams As400 Operator Relationship Specialty Start Date End Date Shiv Hirsch MD [address] [place] [address] PCP - General Internal Medicine 07/18/19 documented as of this encounter
--- OUTSIDE RECORDS SUMMARY | 2025-02-16 19:10 | XMS_ITS | Encounter Summary ---
Author Organization [employer] Address [address] [facility] [address] [place] [address] Care Team Providers Care Header Boss Name Role Phone Shiv Hirsch MD Primary Care Prov ider Reason for Visit * Reason Onset Date Comments Results 01/26/2025 Encounter Details Date Type Department Care Team ([facility] st Contact Info) Description 01/26/2025 Telephone [facility] MEDICINE [address] [place] [address] Shiv Hirsch MD [address] [place], [place] [phone] Results Social History Tobacco Use Types Packs/Day Years [...] encounter Miscellaneous Notes * Telephone Encounter - Maren Saunders - 01/26/2025 11:01 AM EST Tc from pt requesting a call back with Ct Scan results. PCP Dr. Kerr documented in this encounter Plan of Treatment Upcoming Encounters Date Type Department Care Team (Late st Contact Info) Description 06/23/2025 1:30 PM EDT Office Visit [facility] OPTOMETRY [address] [place] [address] Sheyla Yung, OD [address] [place] [address] documented as of this encounter Visit Diagnoses Not on filedocumented in this encounter Care Teams Header Boss Relationship Specialty Start Date End Date Shiv Hirsch MD [address] [place] [phone] PCP - General Internal Medicine 07/18/19 documented as of this encounter
--- OUTSIDE RECORDS SUMMARY | 2025-02-16 19:10 | XMS_ITS | Clinical Summary ---
Author Organization [employer] Address [address] [place] [address] Care Team Providers Care Dip Brazier Name Role Phone Shiv Hirsch MD Primary Care Prov ider Allergies No known active allergies Medications sulfamethoxazole -trimethoprim (Bactrim DS) 800-160 MG tabletIndication s:Acute cystitis without hematuria Take 1 tablet by mouth every 12 (twelve) hours for 3 days. 6 tablet 02/16/2025 6 Active Active Problems Problem Noted Date Diagnosed [...] Encounters Date Type Department Care Team Description 02/16/2025 2:00 PM EST Office Visit [facility] MEDICINE [address] [place] [address] [place] [address] Pricila Harrington NP Acute cystitis without hematuria (Primary Dx); Dysuria 02/16/2025 Travel 02/07/2025 2:15 PM EST Telemedicine [facility] CHC MED & PEDS [address] [place] [address] Shiv Hirsch MD 02/07/2025 Travel 01/27/2025 Orders Only [facility] MEDICINE [address] [place] [address] Lupillo Macias MD Liver lesion (Primary Dx); Nephrolithiasis 01/26/2025 Travel 01/26/[address] [address] Shiv Hirsch MD Nurse Triage 01/26/[address] [address] Shiv Hirsch MD Results 12/23/[address] [address] Shiv Hirsch MD Nurse Triage 11/18/2024 Results Follow-Up [address] [address] Lupillo Macias MD POCT Urinalysis, Culture, Urine, Routine, CT Abdomen Pelvis w/o Contrast 11/16/2024 2:00 PM EDT Office Visit [facility] WALK-IN CENTER [address] [place] [phone] Lupillo Macias MD Acute cystitis with hematuria [...] Mass Index 26 02/16/2025 1:54 PM EST Plan of Treatment Upcoming Encounters Date Type Department Care Team (Late st Contact Info) Description 06/23/2025 1:30 PM EDT Office Visit [facility] OPTOMETRY [address] [place] [address] Sheyla Yung, OD [address] [place] [address] Health Maintenance Due Date Last Done Comments Family Planning (PISQ) 01/18/1999 HPV Vaccines (1 - 3-dose series) 01/18/1999 Hepatitis A Vaccines (1 of 2 - Risk 2-dose series) 01/18/2003 Hepatitis B Vaccines (1 of 3 - 19+ 3-dose series) 01/18/2003 Pap Smear 01/18/2005 Cervical Cancer Screening 11/11/2023 HPV/Cotest 11/11/2023 11/10/2018 COVID-19 Vaccine (1 - 2024-2 6 season) 2024 Influenza Vaccine (#1) 2024 SDOH Screening 06/29/2025 06/29/2024 Disability Screening 01/27/2026 01/27/2025 Alcohol/Substance Use Screening 02/07/2026 02/07/2025 Depression Screening 02/07/2026 02/07/2025, 02/07/2025 Tobacco Screening 02/16/2026 02/16/2025 Mammogram 04/26/2026 04/26/2024, 03/29/2023 DTaP/Tdap/Td Vaccines (2 [...] DIPSTICK Routine 02/16/2025 2:01 PM EST Dysuria MR ABDOMEN W AND WO CONTRAST Urgent 02/11/2025 3:07 PM EST Liver lesion CT ABDOMEN PELVIS WO CONTRAST Routine 01/17/2025 10:20 AM EST Acute cystitis with hematuria History of kidney stones CULTURE, URINE, ROUTINE Routine 11/16/2024 2:05 PM EDT Urinary tract infection with hematuria, site unspecified POCT URINALYSIS DIPSTICK Routine 11/16/2024 2:00 PM EDT Urinary tract infection with hematuria, site unspecified BI MAMMOGRAM SCREENING TOMOSYNTHESIS BILATERAL Routine 04/26/2024 10:40 AM EDT [facility] HISTORICAL HEPATITIS C ANTIBODY RFLX Routine 03/04/2019 10:45 AM EST [facility] HISTORICAL HIV AB/AG Routine 03/04/2019 10:45 AM EST [facility] HISTORICAL HPV MRNA E6/E7 Routine 11/10/2018 11:09 AM EDT from Last 3 Months or Most Recently Relevant to Health Maintenance Results * (ABNORMAL) POCT Urinalysis (02/16/2025 2:01 PM EST) Only the most recent of2 resultswithin the time period is included. Color, UA Kathryn Clarity, UA Clear Glucose, [...] Media Lot # [id number] Lot# Expiration Date Urine (Urine, Random) 02/16/2025 2:01 PM EST Pricila Harrington NP POINT OF CARE TEST ENTER/EDIT O RDERABLES Final Result * MR Abdomen w/ and w/o Contrast (02/11/2025 3:07 PM EST) Anatomical Region Laterality Modality Abdomen Magnetic Resonan ce 02/11/2025 3:07 PM EST Narrative 02/11/2025 3:57 PM EST [place] [address] Magnetic Resonance Report Signed Patient: Vandana Mcfadden MR#: [id number] : 1985 Acct:[id number] Age/Sex: 40 / F ADM Date: 02/11/25 Loc: HO.MRI Attending Dr: Lupillo Tavarez MD Ordering Physician: Lupillo Tavarez MD Date of Service: 02/11/25 Procedure(s): MR abdomen wo/w con Accession Number(s): [id number] cc: Lupillo Tavarez MD Reason for Exam: liver lesion EXAMINATION: MR ABDOMEN WITHOUT THEN WITH IV CONTRAST HISTORY: liver lesion COMPARISON: Correlation is made with a CT of the abdomen without contrast dated 01/17/2025. TECHNIQUE: Axial in and out of phase T1-weighted gradient echo, axial diffusion weighted, and axial and coronal HASTE T2 with fat saturation images were obtained through the abdomen. Subsequently, fat suppressed axial and coronal T1-weighted images were obtained after the intravenous administration of 6.5 mL Gadavist. FINDINGS: Liver: There is no loss of signal intensity in the liver on opposed phase imaging to suggest steatosis. There is a 4.0 x 2.4 x 3.4 cm lobulated T2 hyperintense mass in segment VIII which demonstrates peripheral, nodular enhancement with vaginal fill-in over time, compatible with a hemangioma. There is likely an additional subcentimeter flash filling hemangioma in segment VIII at the dome. The hepatic and portal veins are patent. There is no intrahepatic biliary dilatation. Gallbladder/biliary tree: No gallstones are identified. The common bile duct is normal in caliber. No intraluminal filling defects are identified to suggest choledocholithiasis. Spleen: The spleen is unremarkable. Pancreas: The pancreas is unremarkable. There is no enhancing pancreatic mass. The pancreatic duct is normal in caliber. Adrenals: The adrenal glands are unremarkable. Kidneys: The kidneys are unremarkable. There is no hydronephrosis. Lymph nodes: There is no retroperitoneal lymphadenopathy in the upper abdomen. Fluid: There is no ascites in the upper abdomen. Visualized bowel: The visualized small and large bowel loops are unremarkable in appearance. Visualized bones: The visualized bones demonstrate normal marrow signal intensity. Additional findings: Incidental note is made of an 8 mm submucosal fibroid in the fundus of the uterus and a 2.1 cm posterior fibroid. MR/MR abdomen wo/w con IMPRESSION: 4.0 x 2.4 x 3.4 cm hepatic hemangioma corresponding to the abnormality noted on CT. An additional smaller probable flash filling hemangioma is seen at the dome of the liver. Electronically signed by: Gustavo Serna MD 02/11/2025 03:54 PM [facility] Dictated By: Gustavo Serna MD Signed By: <Electronically signed by Gustavo Serna MD in OV> 02/11/25 1554 DD/ 1507 TD/TT: 02/11/25 1529 Business Operations Manager: Procedure Note Donotuseinterpreter, Image - 02/11/[address] [address] Magnetic Resonance Report Signed Patient: Vandana Mcfadden#: M [id number] : 1985Acct:[id number] Age/Sex: 40 / FADM Date: 02/11/25 Loc: HO.MRI Attending Dr: Lupillo Tavarez MD Ordering Physician: Lupillo Tavarez MD Date of Service: 02/11/25 Procedure(s): MR abdomen wo/w con Accession Number(s): [id number] cc: Lupillo Tavarez MD Reason for Exam: liver lesion EXAMINATION: MR ABDOMEN WITHOUT THEN WITH IV CONTRAST HISTORY: liver lesion COMPARISON: Correlation is made with a CT of the abdomen without contrast dated 01/17/2025. TECHNIQUE: Axial in and out of phase T1-weighted gradient echo, axial diffusion weighted, and axial and coronal HASTE T2 with fat saturation images were obtained through the abdomen. Subsequently, fat suppressed axial and coronal T1-weighted images were obtained after the intravenous administration of 6.5 mL Gadavist. FINDINGS: Liver: There is no loss of signal intensity in the liver on opposed phase imaging to suggest steatosis. There is a 4.0 x 2.4 x 3.4 cm lobulated T2 hyperintense mass in segment VIII which demonstrates peripheral, nodular enhancement with vaginal fill-in over time, compatible with a hemangioma. There is likely an additional subcentimeter flash filling hemangioma in segment VIII at the dome. The hepatic and portal veins are patent. There is no intrahepatic biliary dilatation. Gallbladder/biliary tree: No gallstones are identified. The common bile duct is normal in caliber. No intraluminal filling defects are identified to suggest choledocholithiasis. Spleen: The spleen is unremarkable. Pancreas: The pancreas is unremarkable. There is no enhancing pancreatic mass. The pancreatic duct is normal in caliber. Adrenals: The adrenal glands are unremarkable. Kidneys: The kidneys are unremarkable. There is no hydronephrosis. Lymph nodes: There is no retroperitoneal lymphadenopathy in the upper abdomen. Fluid: There is no ascites in the upper abdomen. Visualized bowel: The visualized small and large bowel loops are unremarkable in appearance. Visualized bones: The visualized bones demonstrate normal marrow signal intensity. Additional findings: Incidental note is made of an 8 mm submucosal fibroid in the fundus of the uterus and a 2.1 cm posterior fibroid. MR/MR abdomen wo/w con IMPRESSION: 4.0 x 2.4 x 3.4 cm hepatic hemangioma corresponding to the abnormality noted on CT. An additional smaller probable flash filling hemangioma is seen at the dome of the liver. Electronically signed by: Gustavo Serna MD 02/11/2025 03:54 PM EST RP Dictated By: Gustavo Serna MD Signed By: <Electronically signed by Gustavo Serna MD in OV> 02/11/25 1554 DD/ 1507 TD/TT: 02/11/25 1529 Business Operations Manager: Lupillo Shaffre MD IMG MRI PROCEDURES Ed ited Result - Final * CT Abdomen Pelvis w/o Contrast (01/17/2025 10:20 AM EST) Anatomical Region Laterality Modality Body, Pelvis, Abdomen Computed T omography 01/17/2025 10:2 0 AM EST Narrative 01/17/2025 11:59 AM EST [place] [address] CT Scan Report Signed Patient: Vandana Mcfadden MR#: M [id number] : 1985 Acct:[id number] Age/Sex: 39 / F ADM Date: 01/17/25 Loc: HO.CT Attending Dr: Lupillo Tavarez MD Ordering Physician: Lupillo Tavarez MD Date of Service: 01/17/25 Procedure(s): CT abdomen pelvis wo IV con Accession Number(s): [id number] cc: Rommel Chavez III, MD; Lupillo Tavarez MD Report Number: [id number]: Total DLP = 461.00 mGy-cm Reason for [...] by: Sanket Granados MD 01/17/2025 11:56 AM [facility] Dictated By: Sanket Granados MD Signed By: <Electronically signed by Sanket Granados MD in OV> 01/17/25 1156 DD/ 1020 TD/TT: 01/17/25 1133 Business Operations Manager: Procedure Note Elyssa, Image - 01/17/[address] [address] [address] Scan Report Signed Patient: Vandana Mcfadden#: M [id number] : 1985Acct:[id number] Age/Sex: 39 / FADM Date: 01/17/25 Loc: HO.CT Attending Dr: Lupillo Tavarez MD Ordering Physician: Lupillo Tavarez MD Date of Service: 01/17/25 Procedure(s): CT abdomen pelvis wo IV con Accession Number(s): [id number] cc: Rommel Chavez III, MD; Lupillo Tavarez MD Report Number: [id number]: Total DLP = 461.00 mGy-cm Reason for [...] 01/17/25 1156 DD/ 1020 TD/TT: 01/17/25 1133 Business Operations Manager: Lupillo Shaffer MD IMG CT PROCEDURES Thad wai Result - Final * Culture, Urine, Routine (11/16/2024 2:05 PM EDT) Urine Urine specimen obtained by clean catch procedure / Unknown 11/16/2024 2:05 PM EDT 11/16/2024 6:31 PM EDT Comment:[facility] - 11/19/2024 7:38 AM EDT Staphylococcus saprophyticus Quant 50,000 to 100,000 cfu/mL Staphylococcus saprophyticus: Clindamycin <=0.25(R) Staphylococcus saprophyticus: Erythromycin >=8(R) Staphylococcus saprophyticus: Nitrofurantoin <=16(S) Staphylococcus saprophyticus: Oxacillin 1(S) Staphylococcus saprophyticus: Penicillin-G 0.25(R) Staphylococcus saprophyticus: Tetracycline <=1(S) Staphylococcus saprophyticus: Trimethoprim/Sulfamethoxazole <=10(S) Specimen Source: Urine clean catch Lupillo Shaffer MD LAB MICROBIOLOGY - [facility] ORDERABLES Final Result [facility] [address] [place] [phone] * BI Mammogram Screening Tomosynthesis Bilateral (04/26/2024 10:40 AM EDT) Anatomical Region Laterality Modality Breast Bilateral Mammography 04/26/2024 10:4 0 AM EDT Narrative 05/03/2024 5:11 PM EDT [address] [place] [address] Mammography Report Signed Patient: Vandana Mcfadden MR#: [id number] : 1985 Acct:[id number] Age/Sex: 39 / F ADM Date: 04/26/24 Loc: HO.MAMMO Attending Dr: Shiv May MD Ordering Physician: Shiv Hirsch MD Res ults: 1Negative Date of Service: 04/26/24 Follow Up: 1 Year From Orig ina Mammogram Procedure(s): MM tomosynthesis screening BI Accession Number(s): [id number] cc: Shiv Hirsch MD EXAMINATION: MM SCREENING [...] 1708 DD/ 1040 TD/TT: 04/26/24 1055 Business Operations Manager: Procedure Note Donotuseinterpreter, Image - 05/03/2024 [facility] [address] [place] [address] Mammography Report Signed Patient: Vandana McfaddenMR#: M [id number] : 1985Acct:[id number] Age/Sex: 39 / FADM Date: 04/26/24 Loc: HO.MAMMO Attending Dr: Shiv May MD Ordering Physician: Shiv Hirsch ults: 1Negative Date of Service: 04/26/24Follow Up: 1 Year From Orig ina Mammogram Procedure(s): MM tomosynthesis screening BI Accession Number(s): [id number] cc: Shiv Hirsch MD EXAMINATION: MM SCREENING [...] 1708 DD/ 1040 TD/TT: 04/26/24 1055 Business Operations Manager: Shiv May MD IMG BI PROCEDURES Final Result * HEPATITIS C ANTIBODY RFLX (03/04/2019 10:45 AM EST) HEPATITIS C ANTIBODY NONREACTIVE NONREACTIVE [facility] Comment: Antibodies to HCV not detected; does not exclude early acute HCV infection. 03/04/2019 10:4 5 AM EST Historical Provider HISTORICAL/NON ORDERABLE LABS Final Result [facility] [address] * HIV AB/AG (03/04/2019 10:45 AM EST) HIV AG/AB NONREACTIVE [facility] [...] of detection of this assay. The [employer] HIV Ag/Ab Combo assay result and supplemental assay results should be interpreted in conjunction with the patient's clinical presentation, history and other laboratory results. If the results are inconsistent with clinical evidence, additional testing is suggested to confirm the result. 03/04/2019 10:4 5 AM EST Historical Provider MD HISTORICAL/NON ORDERABLE LABS Final Result Performing Organization Address [facility]/ZIP Co de Phone Number [facility] [address] * HPV mRNA E6/E7 (11/10/2018 11:09 AM EDT) HPV mRNA E6/E7 Not Detected NOT DETECTED [facility] Comment: This test was performed using the APTIMA(R) HPV Assay ([employer] This assay detects E6/E7 viral messenger RNA (mRNA) from 14 high-risk HPV types (16,18,31,33,35,39,45,51, 52,56,58,59,66,68). For additional information please refer to: http://education.ViewRay/faq/PIK811f8 (This link is being provided for informational/ educational purposes only.) The analytical performance characteristics of this assay have been determined by [employer] [place], [place]. The modifications have not been cleared or approved by the FDA. This assay has been validated pursuant to the CLIA regulations and is used for clinical purposes. Test Performed by [facility], [facility], [address] [place] [address] Benson Choe M.D., Ph.D., Director of Laboratories , CLIA [id number] Please note: Effective 10/30/2015, HPV testing will be performed using [employer]'s APTIMA test which targets mRNA. Detecting mRNA instead of DNA, as in older methods, offers significant improvements in specificity. 11/10/2018 11:0 9 AM EDT Ariana Junior CNM HISTORICAL/NON ORDERABLE LABS Final Result Performing Organization Address [facility] Co de Phone Number [facility] [address] from Last 3 Months or Most Recently Relevant to Health Maintenance Insurance [facility] [place] [id number] Care Teams Dip Brazier Relationship Specialty Start Date End Date KerrShiv Quigley MD [address] [place] [address] [place] Chao [id number] PCP - General Internal Medicine 07/18/19
[2025-02-17 09:35] LABS: Bacterial Vaginosis PCR NEGATIVE (Negative); Candida Group PCR NOT DETECTED (Not Detect); Candida glab krusei PCR NOT DETECTED (Not Detect); Trichomonas vaginalis PCR NOT DETECTED (Not Detect)
[2025-02-17 10:09] LABS: CT PCR NOT DETECTED (Not Detect.); NG PCR NOT DETECTED (Not Detect.)
== END 2025-02-16 19:07 | disposition home or self-care (01) ==
LOC: HO.HHCLNP 19:06
DX: R30.0 Dysuria (principal); Z20.2 Contact with and (suspected) exposure to infections with a predominantly sexual mode of transmission
CPT/HCPCS: 81515; 87086; 87147; 87491; 87591